=== PATIENT | female | born 1985 | race Caucasian/White ===

== ENCOUNTER 2017-11-04 16:17 | Emergency (ER) | payer OTHER ==
[~2017-11-04] VITALS: Ht 170.2 cm; Wt 186.9 kg
[~2017-11-04 16:17] MED LIST: ACEBUTCAFT PO; ALBIPROI INH; ALBU90OI; ALBU90OI INH; ALBU90OI61 INH; AMIT50 PO; AMOCLA500 PO; ARIP10; ARIP10 PO; AZIT250 PO; Ativan1 MG PO; BCP; BENADRYL; BENTYL10 MG PO; BENZ.5; BENZ1; BENZ100A PO; CITA20 PO; CLAR500 PO; CLIN300 PO; CLON.5; CLON1 PO; CODACE30 PO; CROMOI; CRUTCH4 USE; CRUTCHES; CYCL10 PO; Celexa40 MG PO; Cleocin HCl300 MG PO; Cough Formula118 ML PO; Crutch1 EACH MISC; DIPATR PO; DIPH50; DIVA250EC; DIVA500EC; DOCU100 PO; DOXY100 PO; ERYT333ERA PO; ESCI10; ESCI20 PO; ESCI5; FISH1000; FISH1000 PO; FLUSAL2505 IH; FLUT110OIA IH; GABA300 PO; GUAI100SY PO; GUAI600ER PO; HALDOL; HALO1; HYDACE5 PO; HYDGUAL120; HYDGUAL120 PO; HYDPAM25 PO; HYDPAM50 PO; IBUP600 PO; IBUP800 PO; INVEGA PO; KETO10 PO; KETO15TC TP; LAMI; LAMICTAL XR200 MG PO; LAMO100; LEVE500 PO; LEVFLO500 PO; LIDO4TS50 TOP; LINZESS290 MCG PO; LORA1 PO; LORA10ER PO; METF500 PO; METO10 PO; METR500 PO; MULVITMINE; MULVITMINE PO; Monodox100 MG PO; NAPR375 PO; NAPR500 PO; NAPR550 PO; NITR100CA PO; NORETHTP; OLAN10; OMEP20ER PO; ONDA4 PO; OXYACE5T PO; PERM5TC TOP; PHENTERMINE; PHENTERMINE PO; PHENY100ER PO; PRAZ1 PO; PRED20 PO; PREG300 PO; PREG50 PO; PRENZ PO; PROACE100 PO; PROCODE120 PO; PRODEXEL PO; PROM25 PO; Pepcid40 MG PO; Prazosin HCl2 MG PO; Prilosec Otc20 MG PO; QUET100; QUET100 PO; QUET200 PO; QUET25 PO; QUET300; QUET300 PO; RISP1; RXCLIN PO; RXCYCL10 PO; RXHYDACE PO; RXHYDGUAS PO; RXNAPNA550 PO; RXOXYACE PO; RXPROACE PO; RXPROCODSY PO; RXPROM25 PO; SERT100; SULTRIDS PO; Seroquel100 MG PO; TOPI100 PO; TOPI25 PO; TOPI50 PO; TRAM50 PO; TRAZ100; TRAZ50; VENL25 PO; VENL75 PO; VENL75ER PO; VITAMIN B12; Vibramycin100 MG PO; WOMEN'S DAILY1 EACH PO; ZIPR60 PO; ZOLOF
[2017-11-04] MEDS ORDERED: IBUP800 PO (17:45)
== END 2017-11-05 17:56 | disposition home or self-care (01) ==
LOC: ER 16:17
DX: S63.501A Unspecified sprain of right wrist, initial encounter (principal); W18.09XA Striking against other object with subsequent fall, initial encounter; Z88.0 Allergy status to penicillin; Z88.8 Allergy status to other drugs, medicaments and biological substances; Z79.899 Other long term (current) drug therapy; E66.01 Morbid (severe) obesity due to excess calories; G40.909 Epilepsy, unspecified, not intractable, without status epilepticus; F31.9 Bipolar disorder, unspecified; F41.9 Anxiety disorder, unspecified; F32.9 Major depressive disorder, single episode, unspecified; J45.909 Unspecified asthma, uncomplicated; F17.210 Nicotine dependence, cigarettes, uncomplicated
CPT/HCPCS: 73110; 96372; 99283; J1885

== ENCOUNTER 2018-02-24 21:04 | Emergency (ER) | payer OTHER ==
[~2018-02-24] VITALS: Ht 170.2 cm; Wt 193.2 kg
[~2018-02-24 21:04] MED LIST changes: +PANT20 PO; +PRAZ5 PO
[2018-02-27] MEDS ORDERED: DIAZ1KIT4 PR (19:54)
== END 2018-02-24 22:49 | disposition home or self-care (01) ==
LOC: ER 21:04
DX: G40.909 Epilepsy, unspecified, not intractable, without status epilepticus (principal); Z88.0 Allergy status to penicillin; Z88.8 Allergy status to other drugs, medicaments and biological substances; Z79.899 Other long term (current) drug therapy; J45.909 Unspecified asthma, uncomplicated; F41.9 Anxiety disorder, unspecified; F31.9 Bipolar disorder, unspecified; F32.9 Major depressive disorder, single episode, unspecified; Z87.891 Personal history of nicotine dependence
CPT/HCPCS: 36415; 96374; 99283-25; J2060

== ENCOUNTER → 2019-02-13 | Outpatient (CLI) | payer OTHER ==
[~2019-02-13] MED LIST changes: +DIAZ1KIT4 PR; +Flonase 0.05% N16 GM; +Sudogest30 MG PO
[2019-02-15 13:07] LABS: HPV 16 Negative (Negative); HPV 18 Negative (Negative); HPV OTHER HR TYPES Negative (Negative)
== END | disposition home or self-care (01) ==
LOC: LAB SHORT 11:17 → LAB 11:17
PROVIDERS: Obstetrics & Gynecology
DX: Z01.419 Encounter for gynecological examination (general) (routine) without abnormal findings (principal)
CPT/HCPCS: 87624; G0123

== ENCOUNTER 2019-02-23 20:46 | Emergency (ER) | payer OTHER ==
[~2019-02-23] VITALS: Ht 172.7 cm; Wt 181.9 kg
[2019-02-24 00:37] LABS: BASOPHILS ABSOLUTE AUTO 0.03 K/mm3 (0.00-0.23); BASOPHILS PERCENT AUTO 0 % (0-2); EOSINOPHILS ABSOLUTE AUTO 0.22 K/mm3 (0.00-0.68); EOSINOPHILS PERCENT AUTO 3 % (0-6); Hematocrit 43.6 % (33.0-51.0); Hemoglobin 14.5 g/dL (11.5-16.0); IMMATURE GRAN ABSOLUTE AUTO 0.04 K/mm3 (0.00-0.10); IMMATURE GRAN PERCENT AUTO 1 % (0-1); LYMPHOCYTES ABSOLUTE AUTO 2.28 K/mm3 (0.84-5.20); LYMPHOCYTES PERCENT AUTO 33 % (21-46); MONOCYTES ABSOLUTE AUTO 0.58 K/mm3 (0.16-1.47); MONOCYTES PERCENT AUTO 9 % (4-13); Mean Corpuscular HGB 30.1 pg (26.0-34.0); Mean Corpuscular HGB Conc 33.3 g/dL (31.5-36.5); Mean Corpuscular Volume 91 fL (80-100); Mean Platelet Volume 8.9 fL (9.1-12.4); NEUTROPHILS ABSOLUTE AUTO 3.67 K/mm3 (1.96-9.15); NEUTROPHILS PERCENT AUTO 54 % (41-73); Platelet Count 260 K/mm3 (150-400); RDW Coefficient Variation 13.6 % (11.7-14.2); RDW Standard Deviation 45.7 fL (35.1-46.3); Red Blood Cell Count 4.82 M/mm3 (3.80-5.20); White Blood Cell Count 6.82 K/mm3 (4.00-11.30)
[2019-02-24 01:03] LABS: Alanine Aminotransfer (ALT/SGP 37 U/L (12-78); Albumin, Blood 3.3 g/dL (3.4-5.0); Albumin/Globulin Ratio 0.9 (0.8-1.8); Alk Phos 86 U/L (50-136); Anion Gap 8 mmol/L (6-16); Aspartate Aminotrans (AST/SGOT 21 U/L (12-37); Bilirubin, Total 0.2 mg/dL (0.1-1.0); Blood Urea Nitrogen 13 mg/dL (8-24); Bun/Creatinine Ratio 13.4 (12.0-20.0); CO2, Blood 22 mmol/L (21-32); Calcium, Blood 8.8 mg/dL (8.5-10.1); Chloride, Blood 110 mmol/L (98-108); Creatinine, Blood 0.97 mg/dL (0.40-1.00); Globulin, Blood 3.7 g/dL (2.2-4.0); Glomerular Filtration Rate >60 (60-); Glucose, Blood 94 mg/dL (70-99); Potassium, Blood 3.8 mmol/L (3.5-5.5); Sodium, Blood 140 mmol/L (136-145)
== END 2019-02-24 01:52 | disposition home or self-care (01) ==
LOC: ER 20:46
PROVIDERS: Emergency Medicine
DX: N92.6 Irregular menstruation, unspecified (principal); Z88.0 Allergy status to penicillin; Z88.8 Allergy status to other drugs, medicaments and biological substances; Z79.899 Other long term (current) drug therapy; J45.909 Unspecified asthma, uncomplicated; F31.9 Bipolar disorder, unspecified; F17.210 Nicotine dependence, cigarettes, uncomplicated
CPT/HCPCS: 80053; 84702; 85025; 99284

== ENCOUNTER → 2019-12-19 | Outpatient (CLI) | payer OTHER | LOC: LAB SHORT 16:30 → LAB 16:30 → LAB FUT 12-17 15:45 | DX: R31.9 Hematuria, unspecified (principal) | CPT/HCPCS: 87077; 87086; 87186 ==

== ENCOUNTER → 2019-12-30 | Outpatient (CLI) | payer OTHER | END | disposition home or self-care (01) | LOC: LAB SHORT 18:45 → LAB 18:45 | DX: R39.89 Other symptoms and signs involving the genitourinary system (principal) | CPT/HCPCS: 87086 ==

== ENCOUNTER 2020-01-28 14:10 | Emergency (ER) | payer OTHER ==
[~2020-01-28] VITALS: Ht 167.6 cm; Wt 195.0 kg
[2020-01-28] MEDS ORDERED: PERP8 PO (17:54)
[2020-01-28] MEDS ORDERED: METO10 PO (19:31)
[2020-01-28] MEDS ORDERED: PROC25S PR (19:31)
[2020-01-28] MEDS ORDERED: IBUP800 PO (19:31)
== END 2020-01-28 19:48 | disposition home or self-care (01) ==
LOC: ER 14:10
DX: G43.909 Migraine, unspecified, not intractable, without status migrainosus (principal); Z88.0 Allergy status to penicillin; Z88.1 Allergy status to other antibiotic agents; Z88.8 Allergy status to other drugs, medicaments and biological substances; Z79.899 Other long term (current) drug therapy; J45.909 Unspecified asthma, uncomplicated; F31.9 Bipolar disorder, unspecified; F32.9 Major depressive disorder, single episode, unspecified; F17.210 Nicotine dependence, cigarettes, uncomplicated
CPT/HCPCS: 70450; 96374; 96375; 99284-25; J1100; J1200; J1630; J1885; J2550

== ENCOUNTER 2020-04-12 17:27 | Emergency (ER) | payer OTHER ==
[~2020-04-12] VITALS: Ht 170.2 cm; Wt 195.0 kg
[~2020-04-12 17:27] MED LIST changes: +PERP8 PO; +PROC25S PR
[2020-04-12] MEDS ORDERED: MIDAZOLAM H (17:48)
[2020-04-12 18:00] LABS: BASOPHILS ABSOLUTE AUTO 0.03 K/mm3 (0.00-0.23); BASOPHILS PERCENT AUTO 1 % (0-2); EOSINOPHILS PERCENT AUTO 5 % (0-6); IMMATURE GRAN ABSOLUTE AUTO 0.03 K/mm3 (0.00-0.10); IMMATURE GRAN PERCENT AUTO 1 % (0-1); LYMPHOCYTES PERCENT AUTO 36 % (21-46); MONOCYTES ABSOLUTE AUTO 0.47 K/mm3 (0.16-1.47); MONOCYTES PERCENT AUTO 9 % (4-13); Mean Corpuscular HGB 28.8 pg (26.0-34.0); Mean Corpuscular HGB Conc 32.6 g/dL (31.5-36.5); Mean Corpuscular Volume 89 fL (80-100); Mean Platelet Volume 8.9 fL (9.1-12.4); NEUTROPHILS PERCENT AUTO 49 % (41-73); Platelet Count 262 K/mm3 (150-400); RDW Coefficient Variation 12.6 % (11.7-14.2); RDW Standard Deviation 41.2 fL (35.1-46.3); White Blood Cell Count 5.53 K/mm3 (4.00-11.30)
[2020-04-12 18:29] LABS: Alanine Aminotransfer (ALT/SGP 70 U/L (12-78); Albumin, Blood 3.4 g/dL (3.4-5.0); Albumin/Globulin Ratio 0.9 (0.8-1.8); Alk Phos 85 U/L (50-136); Anion Gap 6 mmol/L (6-16); Aspartate Aminotrans (AST/SGOT 61 U/L (12-37); Bilirubin, Total 0.3 mg/dL (0.1-1.0); Blood Urea Nitrogen 6 mg/dL (8-24); CO2, Blood 25 mmol/L (21-32); Calcium, Blood 9.1 mg/dL (8.5-10.1); Chloride, Blood 109 mmol/L (98-108); Creatinine, Blood 0.75 mg/dL (0.40-1.00); Ethanol (Alcohol), Blood, Med <3 mg/dL; Globulin, Blood 3.7 g/dL (2.2-4.0); Glomerular Filtration Rate >60 (60-); Glucose, Blood 112 mg/dL (70-99); Magnesium, Blood 2.1 mg/dL (1.6-2.4); Potassium, Blood 4.1 mmol/L (3.5-5.5); Sodium, Blood 140 mmol/L (136-145); Total Protein, Blood 7.1 g/dL (6.4-8.2)
[2020-04-12 18:48] LABS: Source, Urine Clean Catch
[2020-04-12 18:54] LABS: Appearance, Urine Hazy (Clear); Bilirubin, Urine Neg (Neg); Blood, Urine 1+ (Neg); Color, Urine Yellow (P-Yellow); Glucose Qualitative, Urine Neg (Neg); Ketones, Urine Neg (Neg); Leukocyte Esterase, Urine 1+ (Neg); Nitrite, Urine Neg (Neg); Protein, Urine 1+ (Neg); Specific Gravity, Urine 1.015 (1.003-1.022); Urobilinogen, Urine NORM (Normal); pH, Urine 6.5 (5.0-8.0)
[2020-04-12 19:05] LABS: Bacteria Many /hpf; Red Blood Cells, Urine Rare /hpf (0-2); Squamous Epithelial Cells Many /hpf (Few); White Blood Cells, Urine 0-2 /hpf (0-5)
[2020-04-12 19:11] LABS: U Amphetamine Screen Not Detected; U Barbituate Screen Not Detected; U Benzodiazapine Screen Not Detected; U Buprenorphine Screen Not Detected; U Cannabinoids Screen Not Detected; U Cocaine Screen Not Detected; U Methadone Screen Not Detected; U Methamphetamine Screen Not Detected; U Opiates Screen Not Detected; U Oxycodone Screen Not Detected; U Phencyclidine Screen Not Detected; U Propoxyphene Screen Not Detected
== END 2020-04-12 20:10 | disposition home or self-care (01) ==
LOC: ER 17:27
PROVIDERS: Emergency Medicine
DX: R56.9 Unspecified convulsions (principal); J42 Unspecified chronic bronchitis; F31.9 Bipolar disorder, unspecified; F41.9 Anxiety disorder, unspecified; F17.210 Nicotine dependence, cigarettes, uncomplicated; Z88.0 Allergy status to penicillin; Z88.8 Allergy status to other drugs, medicaments and biological substances; Z88.1 Allergy status to other antibiotic agents; Z79.899 Other long term (current) drug therapy
CPT/HCPCS: 80053; 81001; 81025; 83735; 85025; 87086; 96374; 99284-25; G0480; J1885

== ENCOUNTER → 2020-05-12 | Outpatient (CLI) | payer OTHER ==
[~2020-05-12] MED LIST changes: +MIDAZOLAM H
== END | disposition home or self-care (01) ==
LOC: LAB 11:55 → LAB SHORT 11:55
DX: L02.412 Cutaneous abscess of left axilla (principal)
CPT/HCPCS: 87070; 87077; 87147; 87186; 87205

== ENCOUNTER 2020-07-07 15:28 | Emergency (ER) | payer OTHER ==
[~2020-07-07] VITALS: Ht 170.2 cm; Wt 168.7 kg
[2020-07-07 16:04] LABS: BASOPHILS ABSOLUTE AUTO 0.03 K/mm3 (0.00-0.23); BASOPHILS PERCENT AUTO 0 % (0-2); EOSINOPHILS ABSOLUTE AUTO 0.23 K/mm3 (0.00-0.68); EOSINOPHILS PERCENT AUTO 3 % (0-6); Hematocrit 47.7 % (33.0-51.0); IMMATURE GRAN ABSOLUTE AUTO 0.07 K/mm3 (0.00-0.10); IMMATURE GRAN PERCENT AUTO 1 % (0-1); LYMPHOCYTES ABSOLUTE AUTO 1.94 K/mm3 (0.84-5.20); LYMPHOCYTES PERCENT AUTO 25 % (21-46); MONOCYTES ABSOLUTE AUTO 0.52 K/mm3 (0.16-1.47); MONOCYTES PERCENT AUTO 7 % (4-13); Mean Corpuscular HGB 28.9 pg (26.0-34.0); Mean Corpuscular HGB Conc 33.5 g/dL (31.5-36.5); Mean Corpuscular Volume 86 fL (80-100); Mean Platelet Volume 9.4 fL (9.1-12.4); NEUTROPHILS ABSOLUTE AUTO 5.01 K/mm3 (1.96-9.15); NEUTROPHILS PERCENT AUTO 64 % (41-73); Platelet Count 300 K/mm3 (150-400); RDW Coefficient Variation 13.1 % (11.7-14.2); RDW Standard Deviation 40.8 fL (35.1-46.3); Red Blood Cell Count 5.53 M/mm3 (3.80-5.20)
[2020-07-07 16:25] LABS: Alanine Aminotransfer (ALT/SGP 48 U/L (12-78); Albumin, Blood 3.5 g/dL (3.4-5.0); Albumin/Globulin Ratio 0.8 (0.8-1.8); Alk Phos 128 U/L (50-136); Anion Gap 10 mmol/L (6-16); Aspartate Aminotrans (AST/SGOT 35 U/L (12-37); Bilirubin, Total 0.2 mg/dL (0.1-1.0); Blood Urea Nitrogen 8 mg/dL (8-24); Bun/Creatinine Ratio 11.1 (12.0-20.0); CO2, Blood 21 mmol/L (21-32); Calcium, Blood 8.9 mg/dL (8.5-10.1); Chloride, Blood 103 mmol/L (98-108); Creatinine, Blood 0.72 mg/dL (0.40-1.00); Globulin, Blood 4.4 g/dL (2.2-4.0); Glomerular Filtration Rate >60 (60-); Glucose, Blood 320 mg/dL (70-99); Potassium, Blood 3.8 mmol/L (3.5-5.5); Sodium, Blood 134 mmol/L (136-145); Total Protein, Blood 7.9 g/dL (6.4-8.2)
[2020-07-07 18:15] LABS: Source, Urine Clean Catch
[2020-07-07 18:36] LABS: Appearance, Urine Clear (Clear); Bilirubin, Urine Neg (Neg); Blood, Urine 2+ (Neg); Color, Urine Yellow (P-Yellow); Glucose Qualitative, Urine 4+ (Neg); Ketones, Urine 1+ (Neg); Leukocyte Esterase, Urine 1+ (Neg); Nitrite, Urine Neg (Neg); Protein, Urine Neg (Neg); Specific Gravity, Urine 1.005 (1.003-1.022); Urobilinogen, Urine NORM (Normal)
[2020-07-07 18:53] LABS: Bacteria Mod /hpf; Red Blood Cells, Urine 0-2 /hpf (0-2); Squamous Epithelial Cells Few /hpf (Few)
[2020-07-07] MEDS ORDERED: Flagyl500 MG PO (22:17)
[2020-07-07] MEDS ORDERED: Glucotrol Xl5 MG PO (22:17)
[2020-07-07] MEDS ORDERED: Glucagon Emergen1 MG SL (22:17)
[2020-07-07] MEDS ORDERED: Percocet 7.5-31 EACH PO (22:17)
[2020-07-07] MEDS ORDERED: ONDA4ODT MM (22:17)
== END 2020-07-07 23:00 | disposition home or self-care (01) ==
LOC: ER 15:28
PROVIDERS: Physician Assistant
DX: N73.2 Unspecified parametritis and pelvic cellulitis (principal); B37.3 Candidiasis of vulva and vagina; E11.9 Type 2 diabetes mellitus without complications; Z79.899 Other long term (current) drug therapy
CPT/HCPCS: 36415; 72193; 80053; 81001; 83036; 83690; 85025; 87086; 96365-59; 96366; 96367; 96375-59; 96376-59; 99284-25; A9270; J1170; J1885; J1956; J2405; J3010; J7030; Q9967

== ENCOUNTER 2020-07-08 09:25 | Day surgery (SDC) | payer OTHER ==
[~2020-07-08 09:25] MED LIST changes: +Flagyl500 MG PO; +Glucagon Emergen1 MG SL; +Glucotrol Xl5 MG PO; +ONDA4ODT MM; +Percocet 7.5-31 EACH PO
--- NOTE | 2020-07-08 11:51 | NUR ---
IV LEFT IN PLACE. PT RECEIVING ABX X6 DAYS.
== END 2020-07-08 10:24 | disposition home or self-care (01) ==
LOC: ATC 09:25
DX: E11.628 Type 2 diabetes mellitus with other skin complications (principal); N73.2 Unspecified parametritis and pelvic cellulitis; L03.90 Cellulitis, unspecified; B37.9 Candidiasis, unspecified; J45.909 Unspecified asthma, uncomplicated; F31.9 Bipolar disorder, unspecified; F41.9 Anxiety disorder, unspecified; F17.210 Nicotine dependence, cigarettes, uncomplicated; Z79.2 Long term (current) use of antibiotics; Z88.0 Allergy status to penicillin; Z88.1 Allergy status to other antibiotic agents; Z88.8 Allergy status to other drugs, medicaments and biological substances; Z79.899 Other long term (current) drug therapy
CPT/HCPCS: 96365; J0696

== ENCOUNTER 2020-07-09 01:04 | Day surgery (SDC) | payer OTHER ==
--- NOTE | 2020-07-09 14:55 | NUR ---
IV DRESSING HAD BEEN REMOVED. PT COVERED WITH BANDAID AND ANUP WRAP.
== END 2020-07-09 15:06 | disposition home or self-care (01) ==
LOC: ATC 01:04
DX: E11.628 Type 2 diabetes mellitus with other skin complications (principal); L03.90 Cellulitis, unspecified; N73.2 Unspecified parametritis and pelvic cellulitis; B37.9 Candidiasis, unspecified; J45.909 Unspecified asthma, uncomplicated; F31.9 Bipolar disorder, unspecified; F41.9 Anxiety disorder, unspecified; F17.210 Nicotine dependence, cigarettes, uncomplicated; Z79.2 Long term (current) use of antibiotics; Z79.51 Long term (current) use of inhaled steroids; Z79.899 Other long term (current) drug therapy; Z88.0 Allergy status to penicillin; Z88.1 Allergy status to other antibiotic agents; Z88.8 Allergy status to other drugs, medicaments and biological substances; Z79.84 Long term (current) use of oral hypoglycemic drugs
CPT/HCPCS: 96365; J0696

== ENCOUNTER 2020-07-10 00:40 | Day surgery (SDC) | payer OTHER | END 2020-07-10 15:06 | disposition home or self-care (01) | LOC: ATC 00:40 | DX: E11.628 Type 2 diabetes mellitus with other skin complications (principal); N73.2 Unspecified parametritis and pelvic cellulitis; L03.90 Cellulitis, unspecified; B37.9 Candidiasis, unspecified; J45.909 Unspecified asthma, uncomplicated; F31.9 Bipolar disorder, unspecified; F41.9 Anxiety disorder, unspecified; F17.210 Nicotine dependence, cigarettes, uncomplicated; Z79.84 Long term (current) use of oral hypoglycemic drugs; Z88.0 Allergy status to penicillin; Z88.1 Allergy status to other antibiotic agents; Z88.8 Allergy status to other drugs, medicaments and biological substances; Z79.2 Long term (current) use of antibiotics; Z79.899 Other long term (current) drug therapy | CPT/HCPCS: 96365; J0696 ==

== ENCOUNTER 2020-07-11 11:02 | Day surgery (SDC) | payer OTHER | END 2020-07-11 11:33 | disposition home or self-care (01) | LOC: ATC 11:02 | DX: E11.628 Type 2 diabetes mellitus with other skin complications (principal); N73.2 Unspecified parametritis and pelvic cellulitis; L03.90 Cellulitis, unspecified; B37.9 Candidiasis, unspecified; J45.909 Unspecified asthma, uncomplicated; F31.9 Bipolar disorder, unspecified; F41.9 Anxiety disorder, unspecified; F17.210 Nicotine dependence, cigarettes, uncomplicated; Z79.2 Long term (current) use of antibiotics; Z79.899 Other long term (current) drug therapy; Z88.0 Allergy status to penicillin; Z88.1 Allergy status to other antibiotic agents; Z88.8 Allergy status to other drugs, medicaments and biological substances | CPT/HCPCS: 96365; J0696 ==

== ENCOUNTER 2020-07-12 00:01 | Day surgery (SDC) | payer OTHER | END 2020-07-12 11:25 | disposition home or self-care (01) | LOC: ATC 00:01 | DX: E11.628 Type 2 diabetes mellitus with other skin complications (principal); N73.2 Unspecified parametritis and pelvic cellulitis; L03.90 Cellulitis, unspecified; B37.9 Candidiasis, unspecified; J45.909 Unspecified asthma, uncomplicated; F31.9 Bipolar disorder, unspecified; F41.9 Anxiety disorder, unspecified; F17.210 Nicotine dependence, cigarettes, uncomplicated; Z88.0 Allergy status to penicillin; Z88.1 Allergy status to other antibiotic agents; Z88.8 Allergy status to other drugs, medicaments and biological substances; Z79.84 Long term (current) use of oral hypoglycemic drugs; Z79.2 Long term (current) use of antibiotics; Z79.899 Other long term (current) drug therapy | CPT/HCPCS: 96365; J0696 ==

== ENCOUNTER 2020-07-13 00:24 | Day surgery (SDC) | payer OTHER | END 2020-07-13 11:23 | disposition home or self-care (01) | LOC: ATC 00:24 | DX: N76.4 Abscess of vulva (principal); B37.49 Other urogenital candidiasis; N73.2 Unspecified parametritis and pelvic cellulitis; E11.9 Type 2 diabetes mellitus without complications; J45.909 Unspecified asthma, uncomplicated; F31.9 Bipolar disorder, unspecified; F41.9 Anxiety disorder, unspecified; F17.210 Nicotine dependence, cigarettes, uncomplicated; Z88.0 Allergy status to penicillin; Z88.1 Allergy status to other antibiotic agents | CPT/HCPCS: 96365; J0696 ==

== ENCOUNTER 2020-08-16 23:16 | Emergency (ER) | payer OTHER ==
[~2020-08-16] VITALS: Ht 170.2 cm; Wt 191.4 kg
[2020-08-17] MEDS ORDERED: Bactrim Ds Tab1 EACH PO (00:22)
[2020-08-18] MEDS ORDERED: Monodox100 MG PO (16:44)
[2020-08-18] MEDS ORDERED: CEPH500 PO (16:44)
== END 2020-08-17 00:39 | disposition home or self-care (01) ==
LOC: ER 23:16
DX: L02.411 Cutaneous abscess of right axilla (principal); E11.9 Type 2 diabetes mellitus without complications; F17.210 Nicotine dependence, cigarettes, uncomplicated; Z23 Encounter for immunization; Z88.0 Allergy status to penicillin; Z88.1 Allergy status to other antibiotic agents; Z88.8 Allergy status to other drugs, medicaments and biological substances
CPT/HCPCS: 10060; 90471; 90714; 96372; 99283-25; A9270; J1170

== ENCOUNTER 2020-08-18 14:07 | Emergency (ER) | payer OTHER ==
[~2020-08-18] VITALS: Ht 170.2 cm; Wt 191.4 kg
[~2020-08-18 14:07] MED LIST changes: +Bactrim Ds Tab1 EACH PO
[2020-08-18] MEDS ORDERED: CEPH500 PO (16:44)
[2020-08-18] MEDS ORDERED: Monodox100 MG PO (16:44)
== END 2020-08-18 17:11 | disposition home or self-care (01) ==
LOC: ER 14:07
DX: L02.31 Cutaneous abscess of buttock (principal); J45.909 Unspecified asthma, uncomplicated; F17.210 Nicotine dependence, cigarettes, uncomplicated; Z79.899 Other long term (current) drug therapy; Z88.0 Allergy status to penicillin; Z88.1 Allergy status to other antibiotic agents; Z88.8 Allergy status to other drugs, medicaments and biological substances
CPT/HCPCS: 10061; 87070; 87075; 87147; 87205; 99283-25

== ENCOUNTER 2020-09-14 14:19 | Emergency (ER) | payer OTHER ==
[~2020-09-14] VITALS: Ht 170.2 cm; Wt 168.3 kg
[~2020-09-14 14:19] MED LIST changes: +CEPH500 PO
[2020-09-14] MEDS ORDERED: SULTRIDS PO (16:45)
[2020-09-14] MEDS ORDERED: ASPERFLEX1 EACH TOP (16:45)
== END 2020-09-14 16:54 | disposition home or self-care (01) ==
LOC: ER 14:19
DX: L02.412 Cutaneous abscess of left axilla (principal); E11.9 Type 2 diabetes mellitus without complications; J45.909 Unspecified asthma, uncomplicated; Z87.891 Personal history of nicotine dependence; Z79.84 Long term (current) use of oral hypoglycemic drugs; Z79.899 Other long term (current) drug therapy; Z88.0 Allergy status to penicillin; Z88.8 Allergy status to other drugs, medicaments and biological substances; Z88.1 Allergy status to other antibiotic agents
CPT/HCPCS: 99283; A9270

== ENCOUNTER 2020-09-21 15:43 | Emergency (ER) | payer OTHER ==
[~2020-09-21] VITALS: Ht 172.7 cm; Wt 168.3 kg
[~2020-09-21 15:43] MED LIST changes: +ASPERFLEX1 EACH TOP
[2020-09-21 16:41] LABS: BASOPHILS ABSOLUTE AUTO 0.02 K/mm3 (0.00-0.23); BASOPHILS PERCENT AUTO 0 % (0-2); EOSINOPHILS ABSOLUTE AUTO 0.18 K/mm3 (0.00-0.68); EOSINOPHILS PERCENT AUTO 4 % (0-6); Hemoglobin 15.1 g/dL (11.5-16.0); IMMATURE GRAN ABSOLUTE AUTO 0.02 K/mm3 (0.00-0.10); IMMATURE GRAN PERCENT AUTO 0 % (0-1); LYMPHOCYTES ABSOLUTE AUTO 1.63 K/mm3 (0.84-5.20); LYMPHOCYTES PERCENT AUTO 34 % (21-46); MONOCYTES ABSOLUTE AUTO 0.38 K/mm3 (0.16-1.47); MONOCYTES PERCENT AUTO 8 % (4-13); Mean Corpuscular HGB 28.1 pg (26.0-34.0); Mean Corpuscular HGB Conc 33.6 g/dL (31.5-36.5); Mean Corpuscular Volume 84 fL (80-100); Mean Platelet Volume 9.4 fL (9.1-12.4); NEUTROPHILS ABSOLUTE AUTO 2.63 K/mm3 (1.96-9.15); NEUTROPHILS PERCENT AUTO 54 % (41-73); Platelet Count 238 K/mm3 (150-400); RDW Coefficient Variation 12.5 % (11.7-14.2); RDW Standard Deviation 37.8 fL (35.1-46.3); Red Blood Cell Count 5.37 M/mm3 (3.80-5.20); White Blood Cell Count 4.86 K/mm3 (4.00-11.30)
[2020-09-21 16:43] LABS: Alanine Aminotransfer (ALT/SGP 43 U/L (12-78); Albumin, Blood 3.3 g/dL (3.4-5.0); Albumin/Globulin Ratio 0.8 (0.8-1.8); Alk Phos 115 U/L (50-136); Anion Gap 9 mmol/L (6-16); Aspartate Aminotrans (AST/SGOT 30 U/L (12-37); Bilirubin, Total 0.3 mg/dL (0.1-1.0); Blood Urea Nitrogen 7 mg/dL (8-24); Bun/Creatinine Ratio 11.1 (12.0-20.0); CO2, Blood 23 mmol/L (21-32); Calcium, Blood 8.7 mg/dL (8.5-10.1); Chloride, Blood 104 mmol/L (98-108); Creatinine, Blood 0.63 mg/dL (0.40-1.00); Globulin, Blood 4.1 g/dL (2.2-4.0); Glomerular Filtration Rate >60 (60-); Glucose, Blood 334 mg/dL (70-99); Potassium, Blood 3.5 mmol/L (3.5-5.5); Sodium, Blood 136 mmol/L (136-145); Total Protein, Blood 7.4 g/dL (6.4-8.2)
[2020-09-21] MEDS ORDERED: METF500 (18:28)
== END 2020-09-21 20:32 | disposition home or self-care (01) ==
LOC: ER 15:43
PROVIDERS: Physician Assistant
DX: L02.412 Cutaneous abscess of left axilla (principal); L02.411 Cutaneous abscess of right axilla; Z88.0 Allergy status to penicillin; Z88.8 Allergy status to other drugs, medicaments and biological substances; Z79.899 Other long term (current) drug therapy; Z87.891 Personal history of nicotine dependence
CPT/HCPCS: 36415; 80053; 82947; 85025; 96374; 99283-25; A9270; J1885; J7030

== ENCOUNTER 2020-09-23 00:39 | Day surgery (SDC) | payer OTHER ==
[~2020-09-23 00:39] MED LIST changes: +METF500
== END 2020-09-23 22:41 | disposition home or self-care (01) ==
LOC: WOUND 00:39
DX: E11.628 Type 2 diabetes mellitus with other skin complications (principal); L02.411 Cutaneous abscess of right axilla; L02.412 Cutaneous abscess of left axilla; L73.2 Hidradenitis suppurativa; E11.622 Type 2 diabetes mellitus with other skin ulcer; J45.909 Unspecified asthma, uncomplicated; Z88.1 Allergy status to other antibiotic agents; Z88.0 Allergy status to penicillin; Z88.8 Allergy status to other drugs, medicaments and biological substances; Z87.891 Personal history of nicotine dependence
CPT/HCPCS: A9270; G0463

== ENCOUNTER 2020-09-30 00:28 | Day surgery (SDC) | payer OTHER | END 2020-09-30 23:14 | disposition home or self-care (01) | LOC: WOUND 00:28 | DX: L02.412 Cutaneous abscess of left axilla (principal); L02.411 Cutaneous abscess of right axilla; E11.628 Type 2 diabetes mellitus with other skin complications; L73.2 Hidradenitis suppurativa; E66.01 Morbid (severe) obesity due to excess calories; Z68.43 Body mass index [BMI] 50.0-59.9, adult | CPT/HCPCS: A9270; G0463 ==

== ENCOUNTER 2020-10-07 00:45 | Day surgery (SDC) | payer OTHER | END 2020-10-07 22:42 | disposition home or self-care (01) | LOC: WOUND 00:45 | DX: E11.628 Type 2 diabetes mellitus with other skin complications (principal); L02.411 Cutaneous abscess of right axilla; L02.412 Cutaneous abscess of left axilla; L73.2 Hidradenitis suppurativa | CPT/HCPCS: A9270; G0463 ==

== ENCOUNTER 2020-10-09 15:49 | Emergency (ER) | payer OTHER ==
[~2020-10-09] VITALS: Ht 170.2 cm; Wt 169.2 kg
[2020-10-09] MEDS ORDERED: Norco 5-325 Ta1 EACH PO (17:00)
== END 2020-10-09 17:00 | disposition home or self-care (01) ==
LOC: ER 15:49
DX: S50.12XA Contusion of left forearm, initial encounter (principal); E11.9 Type 2 diabetes mellitus without complications; Z79.899 Other long term (current) drug therapy; Z79.84 Long term (current) use of oral hypoglycemic drugs; Z88.0 Allergy status to penicillin; Z88.1 Allergy status to other antibiotic agents; Z88.8 Allergy status to other drugs, medicaments and biological substances; Z87.891 Personal history of nicotine dependence; W18.2XXA Fall in (into) shower or empty bathtub, initial encounter
CPT/HCPCS: 73090; 99283-25

== ENCOUNTER 2020-10-14 00:52 | Day surgery (SDC) | payer OTHER ==
[~2020-10-14 00:52] MED LIST changes: +Norco 5-325 Ta1 EACH PO
== END 2020-10-14 22:53 | disposition home or self-care (01) ==
LOC: WOUND 00:52
DX: E11.628 Type 2 diabetes mellitus with other skin complications (principal); L02.411 Cutaneous abscess of right axilla; L02.412 Cutaneous abscess of left axilla; L73.2 Hidradenitis suppurativa
CPT/HCPCS: A9270; G0463

== ENCOUNTER 2020-10-21 01:23 | Day surgery (SDC) | payer OTHER | END 2020-10-21 22:42 | disposition home or self-care (01) | LOC: WOUND 01:23 | DX: E11.628 Type 2 diabetes mellitus with other skin complications (principal); L02.411 Cutaneous abscess of right axilla; L02.412 Cutaneous abscess of left axilla; L73.2 Hidradenitis suppurativa | CPT/HCPCS: G0463 ==

== ENCOUNTER 2021-02-01 14:27 | Emergency (ER) | payer OTHER ==
[~2021-02-01] VITALS: Ht 172.7 cm; Wt 168.7 kg
[2021-02-01] MEDS ORDERED: CODITUSSIN AC473 M1 PO ×2 (16:46→16:48)
[2021-02-01] MEDS ORDERED: PSEU120ER PO ×2 (16:46→16:48)
[2021-02-01] MEDS ORDERED: AZIT250 PO (16:46)
== END 2021-02-01 17:01 | disposition home or self-care (01) ==
LOC: ER 14:27
DX: J32.9 Chronic sinusitis, unspecified (principal); J40 Bronchitis, not specified as acute or chronic; Z79.84 Long term (current) use of oral hypoglycemic drugs; Z88.0 Allergy status to penicillin; Z88.1 Allergy status to other antibiotic agents; Z88.8 Allergy status to other drugs, medicaments and biological substances; Z79.899 Other long term (current) drug therapy; Z87.891 Personal history of nicotine dependence
CPT/HCPCS: 71046; 99283-25

== ENCOUNTER 2021-02-22 14:00 | Emergency (ER) | payer OTHER ==
[~2021-02-22] VITALS: Ht 172.7 cm; Wt 179.6 kg
[~2021-02-22 14:00] MED LIST changes: +CODITUSSIN AC473 M1 PO; +PSEU120ER PO
== END 2021-02-22 14:30 | disposition home or self-care (01) ==
LOC: ER 14:00
DX: U07.1 COVID-19 (principal); E11.9 Type 2 diabetes mellitus without complications; J45.909 Unspecified asthma, uncomplicated; Z79.899 Other long term (current) drug therapy; Z79.84 Long term (current) use of oral hypoglycemic drugs
CPT/HCPCS: 99284

== ENCOUNTER 2021-04-16 19:09 | Emergency (ER) | payer OTHER ==
[~2021-04-16] VITALS: Ht 172.7 cm; Wt 177.8 kg
[2021-04-16 19:56] LABS: BASOPHILS ABSOLUTE AUTO 0.02 K/mm3 (0.00-0.23); BASOPHILS PERCENT AUTO 0 % (0-2); EOSINOPHILS ABSOLUTE AUTO 0.19 K/mm3 (0.00-0.68); EOSINOPHILS PERCENT AUTO 3 % (0-6); Hematocrit 44.6 % (33.0-51.0); Hemoglobin 14.8 g/dL (11.5-16.0); IMMATURE GRAN ABSOLUTE AUTO 0.03 K/mm3 (0.00-0.10); IMMATURE GRAN PERCENT AUTO 1 % (0-1); LYMPHOCYTES ABSOLUTE AUTO 1.89 K/mm3 (0.84-5.20); LYMPHOCYTES PERCENT AUTO 34 % (21-46); MONOCYTES ABSOLUTE AUTO 0.42 K/mm3 (0.16-1.47); MONOCYTES PERCENT AUTO 8 % (4-13); Mean Corpuscular HGB 28.5 pg (26.0-34.0); Mean Corpuscular HGB Conc 33.2 g/dL (31.5-36.5); Mean Corpuscular Volume 86 fL (80-100); Mean Platelet Volume 9.1 fL (9.1-12.4); NEUTROPHILS PERCENT AUTO 54 % (41-73); Platelet Count 263 K/mm3 (150-400); RDW Coefficient Variation 13.9 % (11.7-14.2); RDW Standard Deviation 43.8 fL (35.1-46.3); Red Blood Cell Count 5.19 M/mm3 (3.80-5.20); White Blood Cell Count 5.55 K/mm3 (4.00-11.30)
[2021-04-16 20:19] LABS: Alanine Aminotransfer (ALT/SGP 54 U/L (12-78); Albumin, Blood 3.5 g/dL (3.4-5.0); Albumin/Globulin Ratio 0.8 (0.8-1.8); Alk Phos 89 U/L (50-136); Anion Gap 2 mmol/L (6-16); Aspartate Aminotrans (AST/SGOT 62 U/L (12-37); Bilirubin, Total 0.3 mg/dL (0.1-1.0); Blood Urea Nitrogen 11 mg/dL (8-24); Bun/Creatinine Ratio 13.7 (12.0-20.0); CO2, Blood 25 mmol/L (21-32); Calcium, Blood 9.5 mg/dL (8.5-10.1); Chloride, Blood 111 mmol/L (98-108); Globulin, Blood 4.3 g/dL (2.2-4.0); Glomerular Filtration Rate >60 (60-); Glucose, Blood 155 mg/dL (70-99); Potassium, Blood 3.9 mmol/L (3.5-5.5); Sodium, Blood 138 mmol/L (136-145); Total Protein, Blood 7.8 g/dL (6.4-8.2)
[2021-04-16 22:40] LABS: Source, Urine Clean Catch
[2021-04-16 22:42] LABS: Bilirubin, Urine Neg (Neg); Blood, Urine Neg (Neg); Glucose Qualitative, Urine Neg (Neg); Ketones, Urine Neg (Neg); Leukocyte Esterase, Urine Neg (Neg); Nitrite, Urine Neg (Neg); Protein, Urine Neg (Neg); Urobilinogen, Urine NORM (Normal)
[2021-04-16 22:46] LABS: Appearance, Urine Clear (Clear); Color, Urine Yellow (P-Yellow)
[2021-04-17] MEDS ORDERED: Norco 5-325 Ta1 EACH PO (01:23)
[2021-04-17] MEDS ORDERED: IBUP800 PO (01:23)
== END 2021-04-17 01:56 | disposition home or self-care (01) ==
LOC: ER 19:09
PROVIDERS: Physician Assistant
DX: N83.11 Corpus luteum cyst of right ovary (principal); E11.9 Type 2 diabetes mellitus without complications; Z88.0 Allergy status to penicillin; Z88.8 Allergy status to other drugs, medicaments and biological substances; Z88.1 Allergy status to other antibiotic agents; Z79.899 Other long term (current) drug therapy; Z79.84 Long term (current) use of oral hypoglycemic drugs
CPT/HCPCS: 36415; 74177; 80053; 81003; 81025; 85025; 99284; J1885; J2270; J2405; Q9967

== ENCOUNTER → 2021-08-26 | Outpatient (CLI) | payer OTHER ==
[2021-08-26 20:25] LABS: U Amphetamine Screen DETECTED; U Methamphetamine Screen DETECTED
[2021-08-26 20:26] LABS: U Barbituate Screen Not Detected; U Benzodiazapine Screen DETECTED; U Buprenorphine Screen Not Detected; U Cannabinoids Screen Not Detected; U Cocaine Screen Not Detected; U Methadone Screen Not Detected; U Opiates Screen Not Detected; U Oxycodone Screen Not Detected; U Phencyclidine Screen Not Detected; U Propoxyphene Screen Not Detected
== END ==
LOC: LAB 13:35 → LAB SHORT 13:35
PROVIDERS: Nurse Practitioner Psychiatric/Mental Health
DX: F43.10 Post-traumatic stress disorder, unspecified (principal)

== ENCOUNTER → 2022-06-10 | Outpatient (CLI) | payer OTHER | END | disposition home or self-care (01) | LOC: LAB SHORT 16:03 | DX: N39.0 Urinary tract infection, site not specified (principal) | CPT/HCPCS: 87077; 87086; 87147; 87186 ==

== ENCOUNTER 2022-06-15 18:26 | Emergency (ER) | payer OTHER ==
[~2022-06-15] VITALS: Ht 170.2 cm; Wt 108.9 kg
[2022-06-15 19:59] LABS: BASOPHILS ABSOLUTE AUTO 0.03 K/mm3 (0.00-0.23); BASOPHILS PERCENT AUTO 0 % (0-2); EOSINOPHILS ABSOLUTE AUTO 0.27 K/mm3 (0.00-0.68); EOSINOPHILS PERCENT AUTO 3 % (0-6); Hematocrit 41.3 % (33.0-51.0); Hemoglobin 14.1 g/dL (11.5-16.0); IMMATURE GRAN ABSOLUTE AUTO 0.03 K/mm3 (0.00-0.10); IMMATURE GRAN PERCENT AUTO 0 % (0-1); LYMPHOCYTES ABSOLUTE AUTO 1.68 K/mm3 (0.84-5.20); LYMPHOCYTES PERCENT AUTO 21 % (21-46); MONOCYTES ABSOLUTE AUTO 0.69 K/mm3 (0.16-1.47); MONOCYTES PERCENT AUTO 9 % (4-13); Mean Corpuscular HGB 27.8 pg (26.0-34.0); Mean Corpuscular HGB Conc 34.1 g/dL (31.5-36.5); Mean Corpuscular Volume 82 fL (80-100); NEUTROPHILS ABSOLUTE AUTO 5.24 K/mm3 (1.96-9.15); NEUTROPHILS PERCENT AUTO 66 % (41-73); Platelet Count 351 K/mm3 (150-400); RDW Coefficient Variation 13.3 % (11.7-14.2); RDW Standard Deviation 39.2 fL (35.1-46.3); Red Blood Cell Count 5.07 M/mm3 (3.80-5.20); White Blood Cell Count 7.94 K/mm3 (4.00-11.30)
[2022-06-15 20:14] LABS: Albumin, Blood 3.3 g/dL (3.4-5.0); Bilirubin, Total 0.2 mg/dL (0.1-1.0); Bun/Creatinine Ratio 20.2 (12.0-20.0); Calcium, Blood 8.7 mg/dL (8.5-10.1); Creatinine, Blood 0.69 mg/dL (0.40-1.00); Globulin, Blood 3.4 g/dL (2.2-4.0); Potassium, Blood 3.9 mmol/L (3.5-5.5); Total Protein, Blood 6.7 g/dL (6.4-8.2)
== END 2022-06-15 22:33 | disposition home or self-care (01) ==
LOC: ER 18:26
PROVIDERS: Student in an Organized Health Care Education/Training Program
DX: R56.9 Unspecified convulsions (principal); S01.21XA Laceration without foreign body of nose, initial encounter; R07.81 Pleurodynia; W19.XXXA Unspecified fall, initial encounter; E11.9 Type 2 diabetes mellitus without complications; J45.909 Unspecified asthma, uncomplicated; Z88.0 Allergy status to penicillin; Z88.8 Allergy status to other drugs, medicaments and biological substances; Z88.1 Allergy status to other antibiotic agents; Z79.899 Other long term (current) drug therapy; Z79.84 Long term (current) use of oral hypoglycemic drugs
CPT/HCPCS: 36415; 71046; 80053; 84703; 85025; 90714; 93005; 93010; A9270

== ENCOUNTER 2023-05-03 15:20 | Emergency (ER) | payer OTHER ==
[~2023-05-03] VITALS: Ht 167.6 cm; Wt 99.8 kg
[2023-05-03 18:25] VITALS: BP 126/78
== END 2023-05-03 20:00 | disposition home or self-care (01) ==
LOC: ER 15:20
DX: G40.909 Epilepsy, unspecified, not intractable, without status epilepticus (principal); S00.83XA Contusion of other part of head, initial encounter; M79.632 Pain in left forearm; W19.XXXA Unspecified fall, initial encounter; J45.909 Unspecified asthma, uncomplicated; E11.9 Type 2 diabetes mellitus without complications; F31.9 Bipolar disorder, unspecified; Z79.84 Long term (current) use of oral hypoglycemic drugs; Z79.899 Other long term (current) drug therapy; Z88.0 Allergy status to penicillin; Z88.1 Allergy status to other antibiotic agents
CPT/HCPCS: 70450; 70486; 73090; 93005; 93010; 99284-25

== ENCOUNTER 2023-09-05 10:11 | Emergency (ER) | payer OTHER ==
[~2023-09-05] VITALS: Ht 172.7 cm; Wt 117.9 kg
[~2023-09-05 10:11] MED LIST changes: +CLON.5 PO
[2023-09-05 11:05] VITALS: BP 155/98
[2023-09-05 11:38] LABS: BASOPHILS ABSOLUTE AUTO 0.02 K/mm3 (0.00-0.23); BASOPHILS PERCENT AUTO 0 % (0-2); EOSINOPHILS ABSOLUTE AUTO 0.09 K/mm3 (0.00-0.68); EOSINOPHILS PERCENT AUTO 2 % (0-6); Hematocrit 44.3 % (33.0-51.0); IMMATURE GRAN ABSOLUTE AUTO 0.01 K/mm3 (0.00-0.10); IMMATURE GRAN PERCENT AUTO 0 % (0-1); LYMPHOCYTES ABSOLUTE AUTO 1.85 K/mm3 (0.84-5.20); LYMPHOCYTES PERCENT AUTO 33 % (21-46); MONOCYTES PERCENT AUTO 9 % (4-13); Mean Corpuscular HGB 27.8 pg (26.0-34.0); Mean Corpuscular HGB Conc 33.9 g/dL (31.5-36.5); Mean Corpuscular Volume 82 fL (80-100); Mean Platelet Volume 8.8 fL (9.1-12.4); NEUTROPHILS ABSOLUTE AUTO 3.18 K/mm3 (1.96-9.15); NEUTROPHILS PERCENT AUTO 56 % (41-73); Platelet Count 325 K/mm3 (150-400); RDW Coefficient Variation 12.8 % (11.7-14.2); RDW Standard Deviation 37.9 fL (35.1-46.3); Red Blood Cell Count 5.39 M/mm3 (3.80-5.20); White Blood Cell Count 5.65 K/mm3 (4.00-11.30)
[2023-09-05 12:06] LABS: Albumin, Blood 3.7 g/dL (3.4-5.0); Bilirubin, Total 0.9 mg/dL (0.1-1.0); Bun/Creatinine Ratio 11.1 (12.0-20.0); Calcium, Blood 8.9 mg/dL (8.5-10.1); Creatinine, Blood 0.72 mg/dL (0.40-1.00); Globulin, Blood 3.6 g/dL (2.2-4.0); Potassium, Blood 3.8 mmol/L (3.5-5.5); Total Protein, Blood 7.3 g/dL (6.4-8.2)
[2023-09-05 13:25] LABS: Source, Urine Clean Catch
[2023-09-05 13:39] LABS: Appearance, Urine Clear (Clear); Bilirubin, Urine Neg (Neg); Blood, Urine 1+ (Neg); Color, Urine Yellow (P-Yellow); Glucose Qualitative, Urine Neg (Neg); Ketones, Urine Neg (Neg); Leukocyte Esterase, Urine 2+ (Neg); Nitrite, Urine Neg (Neg); Protein, Urine 2+ (Neg); Urobilinogen, Urine NORM (Normal)
[2023-09-05 14:02] LABS: Bacteria Few /hpf; Red Blood Cells, Urine 0-2 /hpf (0-2); Squamous Epithelial Cells Mod /hpf (Few)
== END 2023-09-05 16:02 | disposition home or self-care (01) ==
LOC: ER 10:11
PROVIDERS: Physician Assistant
DX: G89.18 Other acute postprocedural pain (principal); R10.12 Left upper quadrant pain; Z88.0 Allergy status to penicillin; Z88.1 Allergy status to other antibiotic agents; Z79.899 Other long term (current) drug therapy; E11.9 Type 2 diabetes mellitus without complications; F17.210 Nicotine dependence, cigarettes, uncomplicated
CPT/HCPCS: 74177; 80053; 81001; 85025; 87086; 99284-25; Q9967

== ENCOUNTER 2023-12-29 18:30 | Emergency (ER) | payer OTHER ==
[~2023-12-29] VITALS: Ht 172.7 cm; Wt 113.4 kg
[~2023-12-29 18:30] MED LIST changes: +SYMBICORT 160-4.6 GM INH
[2023-12-29] MEDS ORDERED: Ondansetron HCl 2 MG / ML 2ML Vial IV PRN (18:40)
[2023-12-29 18:59] LABS: BASOPHILS ABSOLUTE AUTO 0.01 K/mm3 (0.00-0.23); BASOPHILS PERCENT AUTO 0 % (0-2); EOSINOPHILS ABSOLUTE AUTO 0.19 K/mm3 (0.00-0.68); EOSINOPHILS PERCENT AUTO 3 % (0-6); Hematocrit 46.2 % (33.0-51.0); Hemoglobin 15.6 g/dL (11.5-16.0); IMMATURE GRAN ABSOLUTE AUTO 0.01 K/mm3 (0.00-0.10); IMMATURE GRAN PERCENT AUTO 0 % (0-1); LYMPHOCYTES ABSOLUTE AUTO 0.65 K/mm3 (0.84-5.20); LYMPHOCYTES PERCENT AUTO 10 % (21-46); MONOCYTES ABSOLUTE AUTO 0.36 K/mm3 (0.16-1.47); MONOCYTES PERCENT AUTO 6 % (4-13); Mean Corpuscular HGB 27.6 pg (26.0-34.0); Mean Corpuscular HGB Conc 33.8 g/dL (31.5-36.5); Mean Corpuscular Volume 82 fL (80-100); Mean Platelet Volume 8.5 fL (9.1-12.4); NEUTROPHILS ABSOLUTE AUTO 5.26 K/mm3 (1.96-9.15); NEUTROPHILS PERCENT AUTO 81 % (41-73); Platelet Count 344 K/mm3 (150-400); RDW Coefficient Variation 12.8 % (11.7-14.2); RDW Standard Deviation 38.4 fL (35.1-46.3); Red Blood Cell Count 5.65 M/mm3 (3.80-5.20); White Blood Cell Count 6.48 K/mm3 (4.00-11.30)
[2023-12-29 19:27] LABS: Albumin, Blood 3.3 g/dL (3.4-5.0); Albumin/Globulin Ratio 0.9 (0.8-1.8); Bilirubin, Total 0.5 mg/dL (0.1-1.0); Bun/Creatinine Ratio 13.1 (12.0-20.0); Calcium, Blood 8.3 mg/dL (8.5-10.1); Creatinine, Blood 0.76 mg/dL (0.40-1.00); Globulin, Blood 3.8 g/dL (2.2-4.0); Potassium, Blood 3.4 mmol/L (3.5-5.5); Total Protein, Blood 7.1 g/dL (6.4-8.2)
[2023-12-29] MEDS ORDERED: LAMOTRIGINE200 MG PO (20:00)
[2023-12-29] MEDS ORDERED: Potassium Chloride 20 MEQ TabCR PO ONE (20:05)
[2023-12-29] MEDS ORDERED: Calcium Carbonate 500 MG Tab Chew PO ONE (20:05)
[2023-12-29 20:11] VITALS: BP 142/79
[2023-12-29] MEDS ORDERED: Calcium Carbonate 500 MG Tab Chew ONE (20:12)
[2023-12-29] MEDS ORDERED: Potassium Chloride 20 MEQ TabCR ONE (20:12)
[2023-12-29] MEDS ORDERED: Lidocaine 2% Viscous Soln 15 ML UDC PO ONE (20:20)
[2023-12-29] MEDS ORDERED: Atropine/Scopalam/Hyoscam/PB 5 ML UDC PO ONE (20:20)
[2023-12-29] MEDS ORDERED: Mag Hydrox/AL Hydrox/Simeth 30 ML UDC PO ONE (20:20)
[2023-12-29] MEDS ORDERED: Lidocaine 2% Viscous Soln 15 ML UDC ONE (20:28)
[2023-12-29] MEDS ORDERED: Mag Hydrox/AL Hydrox/Simeth 30 ML UDC ONE (20:28)
[2023-12-29] MEDS ORDERED: Atropine/Scopalam/Hyoscam/PB 5 ML UDC ONE (20:28)
== END 2023-12-29 20:44 | disposition home or self-care (01) ==
LOC: ER 18:30
PROVIDERS: Emergency Medicine
DX: A08.4 Viral intestinal infection, unspecified (principal); J45.909 Unspecified asthma, uncomplicated; E11.9 Type 2 diabetes mellitus without complications; F17.210 Nicotine dependence, cigarettes, uncomplicated; Z79.899 Other long term (current) drug therapy; Z79.51 Long term (current) use of inhaled steroids; Z88.0 Allergy status to penicillin; Z88.1 Allergy status to other antibiotic agents; Z88.8 Allergy status to other drugs, medicaments and biological substances
CPT/HCPCS: 80053; 83690; 84703; 85025; 96374; 99284-25; A9270; J2405

== ENCOUNTER 2024-09-30 13:18 | Emergency (ER) | payer OTHER ==
[~2024-09-30] VITALS: Ht 172.7 cm; Wt 145.2 kg
[~2024-09-30 13:18] MED LIST changes: +LAMOTRIGINE200 MG PO
[2024-09-30 14:40] LABS: BASOPHILS ABSOLUTE AUTO 0.02 K/mm3 (0.00-0.23); BASOPHILS PERCENT AUTO 0 % (0-2); EOSINOPHILS ABSOLUTE AUTO 0.31 K/mm3 (0.00-0.68); EOSINOPHILS PERCENT AUTO 3 % (0-6); Hematocrit 39.7 % (33.0-51.0); Hemoglobin 13.6 g/dL (11.5-16.0); IMMATURE GRAN ABSOLUTE AUTO 0.03 K/mm3 (0.00-0.10); IMMATURE GRAN PERCENT AUTO 0 % (0-1); LYMPHOCYTES ABSOLUTE AUTO 1.97 K/mm3 (0.84-5.20); LYMPHOCYTES PERCENT AUTO 18 % (21-46); MONOCYTES ABSOLUTE AUTO 0.69 K/mm3 (0.16-1.47); MONOCYTES PERCENT AUTO 6 % (4-13); Mean Corpuscular HGB 28.5 pg (26.0-34.0); Mean Corpuscular HGB Conc 34.3 g/dL (31.5-36.5); Mean Corpuscular Volume 83 fL (80-100); Mean Platelet Volume 8.9 fL (9.1-12.4); NEUTROPHILS ABSOLUTE AUTO 7.81 K/mm3 (1.96-9.15); NEUTROPHILS PERCENT AUTO 72 % (41-73); Platelet Count 331 K/mm3 (150-400); RDW Coefficient Variation 13.2 % (11.7-14.2); RDW Standard Deviation 40.5 fL (35.1-46.3); Red Blood Cell Count 4.78 M/mm3 (3.80-5.20); White Blood Cell Count 10.83 K/mm3 (4.00-11.30)
[2024-09-30 15:04] LABS: Albumin, Blood 3.3 g/dL (3.4-5.0); Albumin/Globulin Ratio 0.8 (0.8-1.8); Bilirubin, Total 0.4 mg/dL (0.1-1.0); Bun/Creatinine Ratio 16.1 (12.0-20.0); Calcium, Blood 8.4 mg/dL (8.5-10.1); Creatinine, Blood 0.62 mg/dL (0.40-1.00); Globulin, Blood 3.9 g/dL (2.2-4.0); Potassium, Blood 4.2 mmol/L (3.5-5.5); Total Protein, Blood 7.2 g/dL (6.4-8.2)
[2024-09-30] MEDS ORDERED: Ibuprofen 600 MG Tab PO ONE (15:45)
[2024-09-30 16:16] VITALS: BP 115/78
[2024-09-30 16:17] LABS: Influenza A, PCR NEGATIVE (NEGATIVE); Influenza B, PCR NEGATIVE (NEGATIVE); Resp Syncytial Virus, PCR NEGATIVE (NEGATIVE); SARS-Cov-2 (COVID-19) PCR, MMC NEGATIVE (NEGATIVE)
[2024-09-30] MEDS ORDERED: ALBU90OI INH (16:19)
[2024-09-30] MEDS ORDERED: GUAI600T33 PO (16:38)
[2024-09-30] MEDS ORDERED: Tessalon200 MG PO (16:38)
[2024-09-30] MEDS ORDERED: DOXY100 PO (16:38)
== END 2024-09-30 17:21 | disposition home or self-care (01) ==
LOC: ER 13:18
PROVIDERS: Emergency Medicine; Student in an Organized Health Care Education/Training Program
DX: J41.1 Mucopurulent chronic bronchitis (principal); J45.909 Unspecified asthma, uncomplicated; E11.9 Type 2 diabetes mellitus without complications; F17.210 Nicotine dependence, cigarettes, uncomplicated; Z88.0 Allergy status to penicillin; Z88.1 Allergy status to other antibiotic agents; Z88.8 Allergy status to other drugs, medicaments and biological substances; Z79.51 Long term (current) use of inhaled steroids; Z79.899 Other long term (current) drug therapy
CPT/HCPCS: 0241U; 71046; 80053; 85025; 93005; 93010; 99284-25; A9270

== ENCOUNTER 2025-04-05 03:46 | Emergency (ER) | payer OTHER ==
[~2025-04-05] VITALS: Ht 172.7 cm; Wt 172.4 kg
[~2025-04-05 03:46] MED LIST changes: +GUAI600T33 PO; +Tessalon200 MG PO
[2025-04-05 05:00] VITALS: BP 138/68
== END 2025-04-05 05:34 | disposition home or self-care (01) ==
LOC: ER 03:46
DX: S90.31XA Contusion of right foot, initial encounter (principal); Z88.0 Allergy status to penicillin; Z88.1 Allergy status to other antibiotic agents; J45.909 Unspecified asthma, uncomplicated; E11.9 Type 2 diabetes mellitus without complications; F17.210 Nicotine dependence, cigarettes, uncomplicated; W22.8XXA Striking against or struck by other objects, initial encounter; R07.9 Chest pain, unspecified; I51.7 Cardiomegaly
CPT/HCPCS: 73630; 93246; 93306; 99283-25

== ENCOUNTER 2025-04-28 10:50 | Emergency (ER) | payer OTHER ==
[~2025-04-28] VITALS: Ht 172.7 cm; Wt 140.6 kg
[2025-04-28] MEDS ORDERED: Albuterol 2.5 MG/3 ML VIAL INH ONE (11:05)
[2025-04-28 11:59] LABS: Influenza A, PCR NEGATIVE (NEGATIVE); Influenza B, PCR NEGATIVE (NEGATIVE); Resp Syncytial Virus, PCR NEGATIVE (NEGATIVE); SARS-Cov-2 (COVID-19) PCR, MMC NEGATIVE (NEGATIVE)
[2025-04-28] MEDS ORDERED: Dexamethasone Sod Phos 10 MG/ML 1ML VIAL PO ONE (12:20)
[2025-04-28] MEDS ORDERED: Albuterol 2.5 MG/3 ML VIAL INH SCH (13:25)
[2025-04-28] MEDS ORDERED: Ventolin5 MG/1 ML INH (14:57)
[2025-04-28] MEDS ORDERED: PRED20 PO (14:57)
[2025-04-28 15:12] VITALS: BP 175/57
== END 2025-04-28 15:13 | disposition home or self-care (01) ==
LOC: ER 10:50
PROVIDERS: Student in an Organized Health Care Education/Training Program
DX: J45.901 Unspecified asthma with (acute) exacerbation (principal); E11.9 Type 2 diabetes mellitus without complications; F17.210 Nicotine dependence, cigarettes, uncomplicated; Z79.52 Long term (current) use of systemic steroids; Z79.899 Other long term (current) drug therapy; Z88.0 Allergy status to penicillin; Z88.1 Allergy status to other antibiotic agents; Z88.8 Allergy status to other drugs, medicaments and biological substances
CPT/HCPCS: 71046; 87637; 99285-25; J1100

== ENCOUNTER 2025-05-04 06:56 | Emergency (ER) | payer OTHER ==
[~2025-05-04] VITALS: Ht 167.6 cm; Wt 158.8 kg
[~2025-05-04 06:56] MED LIST changes: +Ventolin5 MG/1 ML INH
[2025-05-04 08:41] LABS: BASOPHILS ABSOLUTE AUTO 0.03 K/mm3 (0.00-0.23); BASOPHILS PERCENT AUTO 0 % (0-2); EOSINOPHILS ABSOLUTE AUTO 0.24 K/mm3 (0.00-0.68); EOSINOPHILS PERCENT AUTO 2 % (0-6); Hematocrit 41.0 % (33.0-51.0); Hemoglobin 14.3 g/dL (11.5-16.0); IMMATURE GRAN ABSOLUTE AUTO 0.23 K/mm3 (0.00-0.10); IMMATURE GRAN PERCENT AUTO 2 % (0-1); LYMPHOCYTES ABSOLUTE AUTO 3.68 K/mm3 (0.84-5.20); LYMPHOCYTES PERCENT AUTO 24 % (21-46); MONOCYTES ABSOLUTE AUTO 0.99 K/mm3 (0.16-1.47); MONOCYTES PERCENT AUTO 6 % (4-13); Mean Corpuscular HGB Conc 34.9 g/dL (31.5-36.5); Mean Corpuscular Volume 82 fL (80-100); NEUTROPHILS ABSOLUTE AUTO 10.23 K/mm3 (1.96-9.15); NEUTROPHILS PERCENT AUTO 66 % (41-73); NRBC ABSOLUTE 0.00 K/mm3 (0.00-0.02); NRBC Auto 0.0 /100 WBC (0.0-0.2); Platelet Count 391 K/mm3 (150-400); RDW Coefficient Variation 13.1 % (11.7-14.2); RDW Standard Deviation 38.5 fL (35.1-46.3)
[2025-05-04 09:09] LABS: Alanine Aminotransfer (ALT/SGP 28.0 U/L (12-78); Albumin, Blood 3.3 g/dL (3.4-5.0); Albumin/Globulin Ratio 1.0 (0.8-1.8); Anion Gap 8.0 mmol/L (3-11); Aspartate Aminotrans (AST/SGOT 19.0 U/L (12-37); Bilirubin, Total 0.4 mg/dL (0.1-1.0); Blood Urea Nitrogen 13.0 mg/dL (8-24); CO2, Blood 28.0 mmol/L (21-32); Calcium, Blood 8.8 mg/dL (8.5-10.1); Chloride, Blood 105.0 mmol/L (98-108); Creatinine, Blood 0.71 mg/dL (0.40-1.00); Globulin, Blood 3.4 g/dL (2.2-4.0); Glucose, Blood 146.0 mg/dL (70-99); Potassium, Blood 3.6 mmol/L (3.5-5.5); Sodium, Blood 137.0 mmol/L (136-145); Total Protein, Blood 6.7 g/dL (6.4-8.2)
[2025-05-04] MEDS ORDERED: Albuterol 2.5 MG/3 ML VIAL INH SCH (09:45)
[2025-05-04] MEDS ORDERED: PRED20 PO (10:15)
[2025-05-04 10:30] VITALS: BP 157/93
== END 2025-05-04 10:55 | disposition home or self-care (01) ==
LOC: ER 06:56
PROVIDERS: Emergency Medicine
DX: J45.901 Unspecified asthma with (acute) exacerbation (principal); F17.210 Nicotine dependence, cigarettes, uncomplicated; E11.9 Type 2 diabetes mellitus without complications; F17.200 Nicotine dependence, unspecified, uncomplicated; Z59.00 Homelessness unspecified; Z88.0 Allergy status to penicillin; Z88.1 Allergy status to other antibiotic agents; Z88.8 Allergy status to other drugs, medicaments and biological substances; Z79.899 Other long term (current) drug therapy
CPT/HCPCS: 71260; 80053; 84484; 85025; 93005; 93010; 96374-59; 99285-25; J2919; Q9967

== ENCOUNTER 2025-05-18 11:14 | Inpatient (IN) | payer OTHER ==
[~2025-05-18] VITALS: Ht 172.7 cm; Wt 166.8 kg
[2025-05-18 11:39] LABS: BASOPHILS ABSOLUTE AUTO 0.01 K/mm3 (0.00-0.23); BASOPHILS PERCENT AUTO 0 % (0-2); EOSINOPHILS ABSOLUTE AUTO 0.35 K/mm3 (0.00-0.68); EOSINOPHILS PERCENT AUTO 4 % (0-6); Hematocrit 41.6 % (33.0-51.0); Hemoglobin 13.9 g/dL (11.5-16.0); IMMATURE GRAN ABSOLUTE AUTO 0.04 K/mm3 (0.00-0.10); IMMATURE GRAN PERCENT AUTO 0 % (0-1); LYMPHOCYTES ABSOLUTE AUTO 1.12 K/mm3 (0.84-5.20); LYMPHOCYTES PERCENT AUTO 11 % (21-46); MONOCYTES ABSOLUTE AUTO 0.49 K/mm3 (0.16-1.47); MONOCYTES PERCENT AUTO 5 % (4-13); Mean Corpuscular HGB Conc 33.4 g/dL (31.5-36.5); Mean Corpuscular Volume 84 fL (80-100); NEUTROPHILS ABSOLUTE AUTO 7.99 K/mm3 (1.96-9.15); NEUTROPHILS PERCENT AUTO 80 % (41-73); NRBC ABSOLUTE 0.00 K/mm3 (0.00-0.02); NRBC Auto 0.0 /100 WBC (0.0-0.2); Platelet Count 291 K/mm3 (150-400); RDW Coefficient Variation 13.2 % (11.7-14.2); RDW Standard Deviation 40.4 fL (35.1-46.3)
[2025-05-18 12:06] LABS: Alanine Aminotransfer (ALT/SGP 31.0 U/L (12-78); Albumin, Blood 3.4 g/dL (3.4-5.0); Albumin/Globulin Ratio 0.9 (0.8-1.8); Anion Gap 9.0 mmol/L (3-11); Aspartate Aminotrans (AST/SGOT 23.0 U/L (12-37); Bilirubin, Total 0.3 mg/dL (0.1-1.0); Blood Urea Nitrogen 5.0 mg/dL (8-24); CO2, Blood 23.0 mmol/L (21-32); Calcium, Blood 8.3 mg/dL (8.5-10.1); Chloride, Blood 107.0 mmol/L (98-108); Creatinine, Blood 0.68 mg/dL (0.40-1.00); Globulin, Blood 3.6 g/dL (2.2-4.0); Glucose, Blood 121.0 mg/dL (70-99); Potassium, Blood 3.9 mmol/L (3.5-5.5); Sodium, Blood 135.0 mmol/L (136-145); Total Protein, Blood 7.0 g/dL (6.4-8.2)
[2025-05-18] MEDS ORDERED: Ketorolac Tromethamine 30mg Vial IV ONE (14:40)
[2025-05-18] MEDS ORDERED: Albuterol 2.5 MG/3 ML VIAL INH SCH ×2 (14:40→16:20)
[2025-05-18] MEDS ORDERED: Ipratropium/Albuterol SulF 2.5-0.5MG/3 ML Amp INH ONE (14:40)
[2025-05-18 16:02] LABS: Influenza A, PCR NEGATIVE (NEGATIVE); Influenza B, PCR NEGATIVE (NEGATIVE); Resp Syncytial Virus, PCR NEGATIVE (NEGATIVE); SARS-Cov-2 (COVID-19) PCR, MMC NEGATIVE (NEGATIVE)
[2025-05-18] MEDS ORDERED: HYDROmorphone HCl/Pf 1MG SYR IV ONE (16:20)
[2025-05-18] MEDS ORDERED: Ondansetron HCl 2 MG / ML 2ML Vial IV PRN (17:10)
[2025-05-18] MEDS ORDERED: Ipratropium/Albuterol SulF 2.5-0.5MG/3 ML Amp INH PRN (17:10)
[2025-05-18] MEDS ORDERED: FentaNYL Citrate 50 MCG/ML 2 ML Injection IV PRN (17:10)
[2025-05-18] MEDS ORDERED: FLU VACC TS2025-26(6MOS UP)/PF 45 MCG/0.5 ML SYRINGE IM SCH (17:10)
--- NOTE | 2025-05-18 17:55 | NUR ---
ASSUMPTION OF CARE PATIENT ARRIVED TO UNIT VIA GURNEY FROM ED, PATIENT INDEPENDENTLY TRANSFERRED FROM [place] TO BED. PATIENT REPORTING INCREASED SHORTNESS OF BREATH WITH AMBULATION. TELE IN PLACE, SINUS TACH 110'S, PATIENT DENIES CHEST PAIN OR PRESSURE. SPO2 >90% ON 2L VIA NC. PER PROVIDER, TO WEAR CPAP AT NIGHT. REPORTS SEVERE PAIN IN LEFT RIBS WHEN COUGHING, PATIENT MEDICATED PER EMAR. PATIENT DENIES ABDOMINAL PAIN, N/V/D. PATIENT IS UP IN BED, BED IN LOWEST POSITION, CALL LIGHT WITHIN REACH.
[2025-05-18 17:57] VITALS: BP 155/90
[2025-05-18] MEDS ORDERED: Enoxaparin 40 MG/0.4 ML SYR SC SCH (18:00)
[2025-05-18] MEDS ORDERED: Magnesium Sulf 2 GM/Water 50ML 50 ML IV ONE (18:25)
[2025-05-18] MEDS ORDERED: Guaifenesin/Dextromethorphan Syrup 5 ML UDC PO PRN (18:50)
[2025-05-18 19:16] VITALS: BP 122/59
[2025-05-18] MEDS ORDERED: Formoterol/Mometasone MDI 5/200 mcg 13 GM INH SCH (21:05)
[2025-05-18 23:48] VITALS: BP 107/51
[2025-05-19 02:04] LABS: BASOPHILS ABSOLUTE AUTO 0.01 K/mm3 (0.00-0.23); BASOPHILS PERCENT AUTO 0 % (0-2); EOSINOPHILS ABSOLUTE AUTO 0.00 K/mm3 (0.00-0.68); EOSINOPHILS PERCENT AUTO 0 % (0-6); Hematocrit 37.8 % (33.0-51.0); Hemoglobin 12.6 g/dL (11.5-16.0); IMMATURE GRAN ABSOLUTE AUTO 0.04 K/mm3 (0.00-0.10); IMMATURE GRAN PERCENT AUTO 0 % (0-1); LYMPHOCYTES ABSOLUTE AUTO 0.34 K/mm3 (0.84-5.20); LYMPHOCYTES PERCENT AUTO 3 % (21-46); MONOCYTES ABSOLUTE AUTO 0.07 K/mm3 (0.16-1.47); MONOCYTES PERCENT AUTO 1 % (4-13); Mean Corpuscular HGB Conc 33.3 g/dL (31.5-36.5); Mean Corpuscular Volume 83 fL (80-100); NEUTROPHILS ABSOLUTE AUTO 10.79 K/mm3 (1.96-9.15); NEUTROPHILS PERCENT AUTO 96 % (41-73); NRBC ABSOLUTE 0.00 K/mm3 (0.00-0.02); NRBC Auto 0.0 /100 WBC (0.0-0.2); Platelet Count 300 K/mm3 (150-400); RDW Coefficient Variation 13.3 % (11.7-14.2); RDW Standard Deviation 40.2 fL (35.1-46.3)
[2025-05-19 02:23] LABS: Alanine Aminotransfer (ALT/SGP 27.0 U/L (12-78); Albumin, Blood 3.1 g/dL (3.4-5.0); Albumin/Globulin Ratio 0.9 (0.8-1.8); Anion Gap 12.0 mmol/L (3-11); Aspartate Aminotrans (AST/SGOT 17.0 U/L (12-37); Bilirubin, Total 0.3 mg/dL (0.1-1.0); Blood Urea Nitrogen 12.0 mg/dL (8-24); CO2, Blood 21.0 mmol/L (21-32); Calcium, Blood 8.9 mg/dL (8.5-10.1); Chloride, Blood 105.0 mmol/L (98-108); Creatinine, Blood 0.86 mg/dL (0.40-1.00); Globulin, Blood 3.6 g/dL (2.2-4.0); Glucose, Blood 367.0 mg/dL (70-99); Potassium, Blood 4.4 mmol/L (3.5-5.5); Sodium, Blood 134.0 mmol/L (136-145); Total Protein, Blood 6.7 g/dL (6.4-8.2)
[2025-05-19 02:36] VITALS: BP 110/63
--- NOTE | 2025-05-19 06:12 | NUR ---
SHIFT SUMMARY PT A&O X4, ANXIOUS, COOPERATIVE TO CARE. HR IN THE 100'S-110'S, SINUS TACH. SHE DENIES ANY CP/PRESSURE, NUMB/TINGLING, SBP STABLE. PT ON 3-5L VIA NC, PER PT SHE IS NOT ON OXYGEN AT BASELINE. PT REPORTS SHE HAS A CPAP FOR NOC USE BUT HAS NOT BEEN USING FOR THE LAST 6 MONTHS DUE TO LIVING SITUATION. PT HAS HOSPITAL CPAP AT BEDSIDE. PT ON CPAP INTERMITENTLY T/O NIGHT. SHE HAS SOB WITH MINIMAL EXERTION. L/S TIGHT/DIM T/O. PT KEPT REMOVING CPAP AND NC T/O NIGHT AND WOULD DESAT TO LOW-MID 80'S. PUREWICK IN PLACE. PT ATTEMPTED TO GET UP TO BATHROOM. AFTER SITTING UP AT EDGE OF BED PT BEGAN TO DESAT, RR INCREASED THE 30'S-40'S, PT TRIPODING AND VERY SOB. AFTER INCREASING O2 AND SITTING AT BEDSIDE FOR SOME TIME PT WAS ABLE TO DECREASE HER WOB AND RR DECREASED BACK TO 20'S. PT HAS A COUGH THAT IS DRY, NONPRODUCTIVE. SHE REPORTS LEFT RIB PAIN THAT IS WORSENED WITH COUGH, MEDICATING PER EMAR. PT IS RESTING IN BED AT THIS TIME CALL LIGHT IN REACH. WHILE COMPLETING ADMISSION ASSESSMENT PT ANSWERED YES TO MULTIPLE QUESTIONS IN THE SOCIAL NEEDS SECTION. PT WOULD LIKE TO DISCUSS NEEDS WITH SOMEONE. CASE MANAGEMENT REFERRAL PLACED.
[2025-05-19 07:26] VITALS: BP 124/49
[2025-05-19] MEDS ORDERED: Insulin Human Lispro 100 Units/ML 3ML Syringe SC SCH ×2 (07:30→16:30)
--- NOTE | 2025-05-19 11:05 | NUR ---
UPDATE PATIENT REPORTING NAUSEA, DRY HEAVING NOTED. PATIENT REPORTING 9/10 PAIN IN LEFT RIBS. PATIENT MEDICATED PER EMAR, REPOSITIONED, AND GIVEN A FAN. PATIENT 1110 PATIENT REPORTING DECREASED LEVELS OF PAIN, REPORTS DECREASED NAUSEA.
[2025-05-19 11:17] VITALS: BP 108/60
[2025-05-19] MEDS ORDERED: Ipratropium/Albuterol SulF 2.5-0.5MG/3 ML Amp INH PRN (12:05)
--- NOTE | 2025-05-19 12:07 | NUR ---
PALLIATIVE CARE NOTE: CONSULT RECEIVED FOR PULMONARY, AD/POLST, PSYCH/SOCIAL MORAL DISTRESS. DISCUSS CODE STATUS, DISEASE MANAGEMENT AND SOCIAL LIVING SITUATION. WILL REFER TO CARE MANAGEMENT FOR SOCIAL DETERMINANTS. AD/POLST IS NOT APPROPRIATE AT THIS TIME PT IS 40 Y/O AND ONLY CHRONIC ILLNESS IS ASTHMA. WILL ATTEMPT VISIT WITH PT TO EDUCATE ON MANAGEMENT OF ILLNESS.
[2025-05-19] MEDS ORDERED: Ketorolac Tromethamine 30mg Vial IV PRN (12:20)
[2025-05-19 15:23] VITALS: BP 117/57
[2025-05-19 17:10] LABS: Source, Urine Clean Catch
[2025-05-19 17:20] LABS: Bilirubin, Urine Neg (Neg); Color, Urine Yellow (P-Yellow); Glucose Qualitative, Urine 4+ (Neg); Ketones, Urine 1+ (Neg); Leukocyte Esterase, Urine Neg (Neg); Protein, Urine 1+ (Neg); Specific Gravity, Urine 1.020 (1.003-1.022); Urobilinogen, Urine NORM (Normal)
--- NOTE | 2025-05-19 17:27 | NUR ---
PALLIATIVE CARE ATTEMPTED VISIT: ATTEMPTED TO SEE PT. PT HAS FAMILY LAWYER AND RN IN ROOM. LAB IS HAVING DIFFICULT TIME DRAWING LAB. WILL ATTEMPT AT A LATER TIME DINNER HAS ALSO ARRIVED. PRINTED OUT EDUCATIONAL MATERIAL ABOUT ASTHMA AND PREVENTION TO DISCUSS WITH PT.
[2025-05-19 17:49] LABS: U Amphetamine Screen DETECTED; U Barbiturate Screen Not Detected; U Benzodiazapine Screen Not Detected; U Buprenorphine Screen Not Detected; U Cannabinoids Screen Not Detected; U Cocaine Screen Not Detected; U Methadone Screen Not Detected; U Methamphetamine Screen DETECTED; U Opiates Screen Not Detected; U Oxycodone Screen Not Detected; U Phencyclidine Screen Not Detected
--- NOTE | 2025-05-19 18:38 | NUR ---
SHIFT SUMMARY PATIENT IS ALERT AND ORIENTED, ABLE TO FOLLOW COMMANDS AND MAKE NEEDS KNOWN. TELE IN PLACE, SINUS TACH 100'S-120'S. SPO2 >90% ON RA, PATIENT IS TACHYPNEIC AND SHORT OF BREATH WITH EXERTION AND PAIN, REQUIRES 3L WITH EXERTION, CPAP AT NIGHT. PATIENT DENIES SUBSTERNAL CHEST PAIN OR PRESSURE, REPORTS MODERATE-SEVERE LEFT RIB PAIN WHEN COUGHING, MEDICATED PER EMAR. EPISODE OF NAUSEA THIS SHIFT, DRY HEAVING PRESENT, PATIENT MEDICATED PER EMAR, NAUSEA RESOLVED BY END OF SHIFT. PATIENT IS A SBA TO [facility] [place]NA[place]. PATIENT IS UP IN BED, BED IN LOWEST POSITION, CALL LIGHT WITHIN REACH.
[2025-05-19 19:42] VITALS: BP 130/61
[2025-05-19] MEDS ORDERED: Enoxaparin 40 MG/0.4 ML SYR SC SCH (21:00)
[2025-05-19 22:22] LABS: Influenza A/2009-H1 Not Detected (NOT DETECT); SARS-Cov-2 (COVID-19), BioFire Not Detected (NOT DETECT)
[2025-05-19 23:24] VITALS: BP 118/62
[2025-05-20 03:16] VITALS: BP 130/58
[2025-05-20 04:00] LABS: BASOPHILS ABSOLUTE AUTO 0.03 K/mm3 (0.00-0.23); BASOPHILS PERCENT AUTO 0 % (0-2); EOSINOPHILS ABSOLUTE AUTO 0.00 K/mm3 (0.00-0.68); EOSINOPHILS PERCENT AUTO 0 % (0-6); Hematocrit 38.2 % (33.0-51.0); Hemoglobin 12.2 g/dL (11.5-16.0); IMMATURE GRAN ABSOLUTE AUTO 0.24 K/mm3 (0.00-0.10); IMMATURE GRAN PERCENT AUTO 1 % (0-1); LYMPHOCYTES ABSOLUTE AUTO 0.80 K/mm3 (0.84-5.20); LYMPHOCYTES PERCENT AUTO 4 % (21-46); MONOCYTES ABSOLUTE AUTO 0.59 K/mm3 (0.16-1.47); MONOCYTES PERCENT AUTO 3 % (4-13); Mean Corpuscular HGB Conc 31.9 g/dL (31.5-36.5); Mean Corpuscular Volume 86 fL (80-100); NEUTROPHILS ABSOLUTE AUTO 19.84 K/mm3 (1.96-9.15); NEUTROPHILS PERCENT AUTO 92 % (41-73); NRBC ABSOLUTE 0.00 K/mm3 (0.00-0.02); NRBC Auto 0.0 /100 WBC (0.0-0.2); Platelet Count 335 K/mm3 (150-400); RDW Coefficient Variation 13.6 % (11.7-14.2); RDW Standard Deviation 42.7 fL (35.1-46.3)
[2025-05-20 04:25] LABS: Anion Gap 11.0 mmol/L (3-11); Blood Urea Nitrogen 19.0 mg/dL (8-24); CO2, Blood 21.0 mmol/L (21-32); Calcium, Blood 8.6 mg/dL (8.5-10.1); Chloride, Blood 106.0 mmol/L (98-108); Creatinine, Blood 0.86 mg/dL (0.40-1.00); Glucose, Blood 361.0 mg/dL (70-99); Potassium, Blood 5.5 mmol/L (3.5-5.5); Sodium, Blood 132.0 mmol/L (136-145)
--- NOTE | 2025-05-20 05:29 | NUR ---
NO ACUTE EVENTS OVERNIGHT. PT HAD AN EPISODE OF ANXIETY EARLIER IN THE SHIFT D/T PAIN FROM COUGHING. PT MEDICATED PER SEP. PT REFUSED CPAP AND WORE OXYMASK THROUGHOUT THE NIGHT WITH 3L. VSS. PT CALLED APPROPRIATELY. PT WAS ABLE TO AMBULATE TO BATHROOM WITH SBA. BED LOCKED IN LOWEST POSITION. CALL LIGHT WITHIN REACH. PT'S RESPIRATORY PANEL CAME BACK POSITIVE FOR RHINOVIRUS. DROPLET PRECAUTIONS PUT IN PLACE.
[2025-05-20 07:28] VITALS: BP 110/62
[2025-05-20 12:13] VITALS: BP 137/87
[2025-05-20 14:49] VITALS: BP 127/63
--- NOTE | 2025-05-20 15:30 | NUR ---
ASTHMA EDUCATION PROVIDED AND BLANK ADVANCE DIRECTIVE FOR REVIEW. PC SIGNING OFF OF CASE PER REQUEST.
--- NOTE | 2025-05-20 16:06 | NUR ---
UPDATE POC GLUCOSE >340. PATIENT EDUCATED NUMEROUS TIMES THROUGHOUT SHIFT REGARDING IMPORTANCE OF ADHERANCE TO CONSISTENT CARB DIET, LOW CARB DRINK AND SNACK ALTERNATIVES OFFERED TO PATIENT THROUGHOUT SHIFT, PATIENT DECLINED MANY OF THESE OFFERS. PROVIDER CONTACTED REGARDING MOST RECENT GLUCOSE AND NONADHERENCE TO DIET, THIS RN RECOMMENDED POTENTIAL HIGH SLIDING SCALE CORRECTIVE INSULIN DOSAGE OR POSSIBLE LONG ACTING INSULIN. NO NEW ORDERS AT THIS TIME, PROVIDER TO CALL BACK.
[2025-05-20] MEDS ORDERED: Insulin Human Lispro 100 Units/ML 3ML Syringe SC SCH (16:30)
[2025-05-20] MEDS ORDERED: Multivitamins 1 Tab PO SCH (17:20)
[2025-05-20 18:58] LABS: pH Blood Venous 7.37 (7.34-7.37)
--- NOTE | 2025-05-20 19:14 | NUR ---
SHIFT SUMMARY PATIENT IS ALERT AND ORIENTED, ABLE TO FOLLOW COMMANDS AND MAKE NEEDS KNOWN. VSS, SPO2 >90% ON RA, CPAP AT NIGHT. SHORTNESS OF BREATH WHILE AT REST, PATIENT SPEAKS IN SHORT SENTENCES, ENDORSES MODERATE TO SEVERE LEFT SIDED PAIN WHEN COUGHING. PAIN IS MEDICATED PER EMAR AND WITH NONPHARMACOLOGICAL INTERVENTIONS. DENIES SUBSTERNAL CHEST PAIN OR PRESSURE. PATIENT DENIES N/V/D. ABDOMEN IS SOFT AND NONTENDER TO PALPATION. PATIENT IS CONTINENT OF STOOL AND URINE, CALLS APPROPRIATELY AND IS A SBA FOR CORD MANAGEMENT TO THE BATHROOM.
[2025-05-20 19:33] VITALS: BP 139/71
[2025-05-20 20:36] VITALS: BP 137/64
--- NOTE | 2025-05-21 02:45 | NUR ---
ASSUMED CARE @7737 PT IN AND OUT OF SLEEP C/O ANXIETY R/T RESPIRATORY PROBLEMS. PT MEDICATED PER SEP. PT INSTRUCTED TO TRY AND LIMIT SUGARY DRINKS HER BLOOD SUGARS HAVE BEEN HIGH, PT NOT RECEPTIVE STATING SHE DOESN'T LIKE DIET THINGS AND DOESN'T LIKE WATER. WILL CONTINUE TO REINFORCE. CARE TRANSFERRED TO [facility] @ 0587
[2025-05-21 05:33] VITALS: BP 127/78
--- NOTE | 2025-05-21 05:39 | NUR ---
SHIFT SUMMARY PT ADMITTED FOR ASTHMA EXACERBATION. PT HAD MULTIPLE REQUESTS FOR CHICKEN BROT, CRACKERS, AND JUICE. PT HAD PAIN MEDICINE WHEN DUE. PT IS RECEPTIVE TO CARE. PT ABLE TO MAKE NEEDS KNOWN TO STAFF AND IS STAND BY ASSIST TO BATHROOM TOILET. PT IS ALERT AND ORIENTED TIMES 4 . CALL LIGHT WITHIN REACH, RAILS TIMES 2, BED IN LOW POSITION.
[2025-05-21 07:05] LABS: Anion Gap 8.0 mmol/L (3-11); Blood Urea Nitrogen 19.0 mg/dL (8-24); CO2, Blood 24.0 mmol/L (21-32); Calcium, Blood 8.3 mg/dL (8.5-10.1); Chloride, Blood 106.0 mmol/L (98-108); Creatinine, Blood 0.75 mg/dL (0.40-1.00); Glucose, Blood 257.0 mg/dL (70-99); Magnesium, Blood 2.1 mg/dL (1.6-2.4); Phosphorus, Blood 2.3 mg/dL (2.5-4.9); Potassium, Blood 4.7 mmol/L (3.5-5.5); Sodium, Blood 133.0 mmol/L (136-145)
[2025-05-21 07:55] VITALS: BP 122/86
[2025-05-21] MEDS ORDERED: MULVITA PO (11:27)
[2025-05-21] MEDS ORDERED: PRED20 PO (11:27)
[2025-05-21] MEDS ORDERED: VITAMIN B-1100 MG PO (11:28)
--- NOTE | 2025-05-21 13:53 | NUR ---
DISCHARGE NOTE @ 1150 PATIENT DISCHARGE TO HOME. PRINTED AND REVIEWED DISCHARGE INSTRUCTIONS, VERBALIZED UNDERSTANDING. DENIES ADDITIONAL QUESTIONS OR CONCERNS. BELONGINGS RETURNED TO PATIENT. IV D/C'D BEFORE DISCHARGE. VITAL SIGNS STABLE. TOLARATING PO SND VOIDING. PATIENT TRANSPORTED VIA WHEELCHAIR OUT OF ROOM BY SILAS PAGAN.
[2025-05-22] MEDS ORDERED: PRED20 PO (15:59)
[2025-05-22] MEDS ORDERED: Ventolin5 MG/1 ML INH (15:59)
[2025-05-22] MEDS ORDERED: Q-Tussin100 MG/5 M PO (15:59)
== END 2025-05-21 12:06 | disposition home or self-care (01) | DRG 202 ==
LOC: ER 11:14 → PCU 11:15 → MEDS 05-20 20:21
PROVIDERS: Student in an Organized Health Care Education/Training Program; ADMIT Internal Medicine
PROC: 5A09357 Assistance with Respiratory Ventilation, Less than 24 Consecutive Hours, Continuous Positive Airway Pressure (ICD-10-PCS; principal; 2025-05-19)
DX: J45.901 Unspecified asthma with (acute) exacerbation (principal); J96.01 Acute respiratory failure with hypoxia; J44.0 Chronic obstructive pulmonary disease with (acute) lower respiratory infection; Z68.42 Body mass index [BMI] 45.0-49.9, adult; F41.9 Anxiety disorder, unspecified; F31.9 Bipolar disorder, unspecified; R07.81 Pleurodynia; E11.9 Type 2 diabetes mellitus without complications; F17.210 Nicotine dependence, cigarettes, uncomplicated; G47.33 Obstructive sleep apnea (adult) (pediatric); E66.01 Morbid (severe) obesity due to excess calories; G40.909 Epilepsy, unspecified, not intractable, without status epilepticus; N83.209 Unspecified ovarian cyst, unspecified side; J20.9 Acute bronchitis, unspecified; Z88.0 Allergy status to penicillin; Z88.1 Allergy status to other antibiotic agents; Z88.8 Allergy status to other drugs, medicaments and biological substances; Z79.899 Other long term (current) drug therapy; Z79.51 Long term (current) use of inhaled steroids
CPT/HCPCS: 0202U; 36415; 71045; 71046; 80048; 80053; 82803; 82947; 83735; 83880; 84100; 84145; 84484; 85025; 85379; 87637; 93005; 93010; 94640; 94660; 94664; 94760; 94762; 96372; 96374; 96375; 96376; 99285-25; A9270; G0378; J0456; J1171; J1650; J1885; J2405; J2919; J3010; J3475; J7050; J7512

== ENCOUNTER 2025-05-21 21:02 | Emergency (ER) | payer OTHER ==
[~2025-05-21] VITALS: Ht 182.9 cm; Wt 163.3 kg
[~2025-05-21 21:02] MED LIST changes: +MULVITA PO; +VITAMIN B-1100 MG PO
[2025-05-21 21:40] LABS: BASOPHILS ABSOLUTE AUTO 0.03 K/mm3 (0.00-0.23); BASOPHILS PERCENT AUTO 0 % (0-2); EOSINOPHILS ABSOLUTE AUTO 0.02 K/mm3 (0.00-0.68); EOSINOPHILS PERCENT AUTO 0 % (0-6); Hematocrit 38.9 % (33.0-51.0); Hemoglobin 12.7 g/dL (11.5-16.0); IMMATURE GRAN ABSOLUTE AUTO 0.32 K/mm3 (0.00-0.10); IMMATURE GRAN PERCENT AUTO 2 % (0-1); LYMPHOCYTES ABSOLUTE AUTO 2.49 K/mm3 (0.84-5.20); LYMPHOCYTES PERCENT AUTO 16 % (21-46); MONOCYTES ABSOLUTE AUTO 0.94 K/mm3 (0.16-1.47); MONOCYTES PERCENT AUTO 6 % (4-13); Mean Corpuscular HGB Conc 32.6 g/dL (31.5-36.5); Mean Corpuscular Volume 85 fL (80-100); NEUTROPHILS ABSOLUTE AUTO 12.14 K/mm3 (1.96-9.15); NEUTROPHILS PERCENT AUTO 76 % (41-73); NRBC ABSOLUTE 0.02 K/mm3 (0.00-0.02); NRBC Auto 0.1 /100 WBC (0.0-0.2); RDW Coefficient Variation 13.7 % (11.7-14.2); RDW Standard Deviation 42.4 fL (35.1-46.3)
[2025-05-21 21:41] LABS: Platelet Count 341 K/mm3 (150-400)
[2025-05-21 21:52] LABS: Alanine Aminotransfer (ALT/SGP 27.0 U/L (12-78); Albumin, Blood 3.1 g/dL (3.4-5.0); Albumin/Globulin Ratio 0.9 (0.8-1.8); Anion Gap 11.0 mmol/L (3-11); Aspartate Aminotrans (AST/SGOT 15.0 U/L (12-37); Bilirubin, Total 0.2 mg/dL (0.1-1.0); Blood Urea Nitrogen 16.0 mg/dL (8-24); CO2, Blood 22.0 mmol/L (21-32); Calcium, Blood 8.5 mg/dL (8.5-10.1); Chloride, Blood 106.0 mmol/L (98-108); Creatinine, Blood 0.69 mg/dL (0.40-1.00); Globulin, Blood 3.3 g/dL (2.2-4.0); Glucose, Blood 260.0 mg/dL (70-99); Potassium, Blood 4.1 mmol/L (3.5-5.5); Sodium, Blood 135.0 mmol/L (136-145); Total Protein, Blood 6.4 g/dL (6.4-8.2)
[2025-05-21] MEDS ORDERED: Ketorolac Tromethamine 15mg Vial IV ONE (22:40)
[2025-05-21 23:30] VITALS: BP 167/102
[2025-05-22] MEDS ORDERED: RX Prepack Albuterol 1 PREPACK/6.7 GM INH UD ONE (00:25)
[2025-05-22] MEDS ORDERED: Ventolin5 MG/1 ML INH (15:59)
[2025-05-22] MEDS ORDERED: PRED20 PO (15:59)
[2025-05-22] MEDS ORDERED: Q-Tussin100 MG/5 M PO (15:59)
== END 2025-05-22 00:32 | disposition home or self-care (01) ==
LOC: ER 21:02
PROVIDERS: Student in an Organized Health Care Education/Training Program
DX: J45.901 Unspecified asthma with (acute) exacerbation (principal); R07.9 Chest pain, unspecified; E11.9 Type 2 diabetes mellitus without complications; E66.01 Morbid (severe) obesity due to excess calories; F17.210 Nicotine dependence, cigarettes, uncomplicated; Z91.148 Patient's other noncompliance with medication regimen for other reason; Z68.42 Body mass index [BMI] 45.0-49.9, adult; Z88.0 Allergy status to penicillin; Z88.1 Allergy status to other antibiotic agents; Z91.018 Allergy to other foods; Z88.8 Allergy status to other drugs, medicaments and biological substances; Z79.52 Long term (current) use of systemic steroids; Z79.51 Long term (current) use of inhaled steroids; Z79.899 Other long term (current) drug therapy
CPT/HCPCS: 71046; 80053; 83690; 83880; 84484; 85025; 93005; 93010; 96374; 99285-25; A9270; J1885

== ENCOUNTER 2025-05-22 12:18 | Emergency (ER) | payer OTHER ==
[~2025-05-22] VITALS: Ht 172.7 cm; Wt 172.4 kg
[2025-05-22 12:20] VITALS: BP 152/92
[2025-05-22] MEDS ORDERED: Albuterol 2.5 MG/3 ML VIAL INH SCH ×2 (12:25→14:20)
[2025-05-22] MEDS ORDERED: Ipratropium Bromide INH 0.02% 0.5 mg/2.5ML Vial INH SCH (12:25)
[2025-05-22 13:13] LABS: BASOPHILS ABSOLUTE AUTO 0.03 K/mm3 (0.00-0.23); BASOPHILS PERCENT AUTO 0 % (0-2); EOSINOPHILS ABSOLUTE AUTO 0.20 K/mm3 (0.00-0.68); EOSINOPHILS PERCENT AUTO 2 % (0-6); Hematocrit 41.5 % (33.0-51.0); Hemoglobin 13.8 g/dL (11.5-16.0); IMMATURE GRAN ABSOLUTE AUTO 0.40 K/mm3 (0.00-0.10); IMMATURE GRAN PERCENT AUTO 3 % (0-1); LYMPHOCYTES ABSOLUTE AUTO 3.79 K/mm3 (0.84-5.20); LYMPHOCYTES PERCENT AUTO 32 % (21-46); MONOCYTES ABSOLUTE AUTO 0.90 K/mm3 (0.16-1.47); MONOCYTES PERCENT AUTO 8 % (4-13); Mean Corpuscular HGB Conc 33.3 g/dL (31.5-36.5); Mean Corpuscular Volume 85 fL (80-100); NEUTROPHILS ABSOLUTE AUTO 6.38 K/mm3 (1.96-9.15); NEUTROPHILS PERCENT AUTO 55 % (41-73); NRBC ABSOLUTE 0.00 K/mm3 (0.00-0.02); NRBC Auto 0.0 /100 WBC (0.0-0.2); Platelet Count 358 K/mm3 (150-400); RDW Coefficient Variation 13.6 % (11.7-14.2); RDW Standard Deviation 42.5 fL (35.1-46.3)
[2025-05-22 13:36] LABS: Alanine Aminotransfer (ALT/SGP 31.0 U/L (12-78); Albumin, Blood 3.2 g/dL (3.4-5.0); Albumin/Globulin Ratio 0.9 (0.8-1.8); Anion Gap 7.0 mmol/L (3-11); Aspartate Aminotrans (AST/SGOT 24.0 U/L (12-37); Bilirubin, Total 0.4 mg/dL (0.1-1.0); Blood Urea Nitrogen 19.0 mg/dL (8-24); CO2, Blood 26.0 mmol/L (21-32); Calcium, Blood 8.7 mg/dL (8.5-10.1); Chloride, Blood 106.0 mmol/L (98-108); Creatinine, Blood 0.79 mg/dL (0.40-1.00); Globulin, Blood 3.4 g/dL (2.2-4.0); Glucose, Blood 114.0 mg/dL (70-99); Potassium, Blood 4.0 mmol/L (3.5-5.5); Sodium, Blood 135.0 mmol/L (136-145); Total Protein, Blood 6.6 g/dL (6.4-8.2)
[2025-05-22] MEDS ORDERED: Ventolin5 MG/1 ML INH (15:59)
[2025-05-22] MEDS ORDERED: PRED20 PO (15:59)
[2025-05-22] MEDS ORDERED: Q-Tussin100 MG/5 M PO (15:59)
== END 2025-05-22 16:31 | disposition home or self-care (01) ==
LOC: ER 12:18
PROVIDERS: Physician Assistant
DX: J45.901 Unspecified asthma with (acute) exacerbation (principal); E11.9 Type 2 diabetes mellitus without complications; F17.210 Nicotine dependence, cigarettes, uncomplicated; Z88.0 Allergy status to penicillin; Z88.1 Allergy status to other antibiotic agents; Z91.018 Allergy to other foods; Z88.8 Allergy status to other drugs, medicaments and biological substances; Z79.52 Long term (current) use of systemic steroids; Z79.51 Long term (current) use of inhaled steroids; Z79.899 Other long term (current) drug therapy; Z59.89 Other problems related to housing and economic circumstances
CPT/HCPCS: 80053; 84484; 85025; 93005; 93010; 96374; 99285-25; A9270; J2919

== ENCOUNTER 2025-06-06 20:17 | Emergency (ER) | payer OTHER ==
[~2025-06-06] VITALS: Ht 172.7 cm; Wt 158.8 kg
[~2025-06-06 20:17] MED LIST changes: +Q-Tussin100 MG/5 M PO
[2025-06-06 20:34] VITALS: BP 148/89
[2025-06-06] MEDS ORDERED: Ketorolac Tromethamine 30mg Vial IM ONE (21:30)
== END 2025-06-06 21:51 | disposition home or self-care (01) ==
LOC: ER 20:17
DX: S93.601A Unspecified sprain of right foot, initial encounter (principal); J45.909 Unspecified asthma, uncomplicated; W01.0XXA Fall on same level from slipping, tripping and stumbling without subsequent striking against object, initial encounter; Z87.891 Personal history of nicotine dependence
CPT/HCPCS: 73610; 73630; 96372; 99283-25; J1885

== ENCOUNTER 2025-06-17 23:19 | Emergency (ER) | payer OTHER ==
[~2025-06-17] VITALS: Ht 172.7 cm; Wt 136.1 kg
[2025-06-18] MEDS ORDERED: Ketorolac Tromethamine 30mg Vial IM ONE (01:40)
[2025-06-18] MEDS ORDERED: Robaxin750 MG PO (02:36)
[2025-06-18 02:48] VITALS: BP 128/63
== END 2025-06-18 02:51 | disposition home or self-care (01) ==
LOC: ER 23:19
DX: M62.831 Muscle spasm of calf (principal); J45.909 Unspecified asthma, uncomplicated; E11.9 Type 2 diabetes mellitus without complications; F17.210 Nicotine dependence, cigarettes, uncomplicated; Z88.0 Allergy status to penicillin; Z88.1 Allergy status to other antibiotic agents; Z88.8 Allergy status to other drugs, medicaments and biological substances; Z91.018 Allergy to other foods; Z79.51 Long term (current) use of inhaled steroids; Z79.52 Long term (current) use of systemic steroids; Z79.899 Other long term (current) drug therapy
CPT/HCPCS: 96372; 99283; A9270; J1885